=== PATIENT | male | born 1975 | race African-American/Black ===

== ENCOUNTER 2019-04-13 10:43 | Emergency (ER) | payer SELFPAY ==
[2019-04-13] MEDS ORDERED: MORPHINE SULFATE 10 MG/ML INJ IV ONE (10:58)
[2019-04-13] MEDS ORDERED: ONDANSETRON HCL INJ/PF 4 MG/2 ML SDV IV ONE (10:58)
[2019-04-13] MEDS ORDERED: NORMAL SALINE 1000 ML 1,000 ML IV ONE ×2 (10:59→13:03)
--- NOTE | 2019-04-13 11:01 | ER Document Report ---
ED Medical Screen (RME) - General Chief Complaint: Abdominal Pain Stated Complaint: ABDOMINAL PAIN Time Seen by Provider: 04/13/19 10:55 Mode of Arrival: Ambulatory Information source: Patient Notes: Patient is a 44-year-old male with past medical history of pancreatitis presenting with severe upper abdominal pain and back pain. Patient also reports associated chills and nausea. He states he has been taking antinausea medication at home as he has not vomited. Exam: Upper abdominal tenderness to palpation. I have greeted and performed a rapid initial assessment of this patient. A com prehensive ED assessment and evaluation of the patient, analysis of test results and completion of the medical decision making process will be conducted by additional ED providers. Dictation of this chart was performed using voice recognition software; therefore, there may be some unintended grammatical errors. - Related Data Allergies/Adverse Reactions: Penicillins Allergy (Verified 04/13/19 10:46) prils Allergy (Uncoded 04/13/19 10:46) Past Medical History - Social History Chew tobacco use (# tins/day): No Frequency of alcohol use: Occasional Drug Abuse: None Pulmonary Medical History: Reports: Hx Asthma Renal/ Medical History: Denies: Hx Peritoneal Dialysis Physical Exam - Vital signs Vitals: Temp Pulse Resp BP Pulse Ox 98.3 F 81 18 155/97 H 97 04/13/19 10:47 04/13/19 10:47 04/13/19 10:47 04/13/19 10:47 04/13/19 10:47 Course - Vital Signs Vital signs: Temp Pulse Resp BP Pulse Ox 98.3 F 81 18 155/97 H 97 04/13/19 10:47 04/13/19 10:47 04/13/19 10:47 04/13/19 10:47 04/13/19 10:47
[2019-04-13 11:49] LABS: ABSOLUTE BASOPHILS # (AUTO) 0.1 10^3/uL (0.0-0.2); ABSOLUTE EOSINOPHILS # (AUTO) 0.1 10^3/uL (0.0-0.6); ABSOLUTE LYMPHOCYTES (AUTO) 1.1 10^3/uL (0.5-4.7); ABSOLUTE NEUT (AUTO) 5.7 10^3/uL (1.7-8.2); BASOPHILS % (AUTO) 0.8 % (0-2); EOSINOPHILS % (AUTO) 1.8 % (0-6); HEMATOCRIT 42.3 % (37.9-51.0); HEMOGLOBIN 13.9 g/dL (13.5-17.0); MEAN CORPUSCULAR HEMOGLOBIN 24.4 pg (27.0-33.4); MEAN CORPUSCULAR HGB CONC 32.8 g/dL (32.0-36.0); MEAN CORPUSCULAR VOLUME 74 fl (80-97); MONOCYTES % (AUTO) 12.2 % (3-13); PLATELET COUNT 145 10^3/uL (150-450); RED CELL DISTRIBUTION WIDTH 15.2 % (11.5-14.0); SEGMENTED NEUTROPHILS % (AUTO) 71.2 % (42-78); TOTAL CELLS COUNTED % (AUTO) 100 %
[2019-04-13 12:10] LABS: ALANINE AMINOTRANSFERASE 98 U/L (21-72); ALBUMIN 5.1 g/dL (3.5-5.0); ALKALINE PHOSPHATASE 121 U/L (38-126); ANION GAP 18 (5-19); ASPARTATE AMINO TRANSFERASE 101 U/L (17-59); BILIRUBIN,DIRECT 0.6 mg/dL (0.0-0.4); BILIRUBIN,TOTAL 1.3 mg/dL (0.2-1.3); BLOOD UREA NITROGEN 9 mg/dL (7-20); CALCIUM 11.2 mg/dL (8.4-10.2); CARBON DIOXIDE 22 mmol/L (22-30); CHLORIDE 97 mmol/L (98-107); GLUCOSE 78 mg/dL (75-110); LIPASE 597.8 U/L (23-300); POTASSIUM 4.4 mmol/L (3.6-5.0); SODIUM 137.1 mmol/L (137-145); TOTAL PROTEIN 8.5 g/dL (6.3-8.2)
--- NOTE | 2019-04-13 13:02 | ER Document Report ---
ED GI/ - General Chief Complaint: Abdominal Pain Stated Complaint: ABDOMINAL PAIN Time Seen by Provider: 04/13/19 10:55 Mode of Arrival: Ambulatory Notes: 44-year-old -[place] male to the emergency department chief complaint of pancreatitis. Patient states that he gets pancreatitis all the time but denies that he is drinking anymore. Most the time he can handle the pain but has gotten severe. Positive nausea. States that he has not been eating for 3 days. - HPI Patient complains to provider of: Abdominal pain, Vomiting Timing/Duration: Gradual, Constant Quality of pain: Achy, Burning Severity at maximum: Moderate Severity in ED: Moderate Pain Level: 4 Location: Epigastric - Related Data Allergies/Adverse Reactions: Penicillins Allergy (Verified 04/13/19 10:46) prils Allergy (Uncoded 04/13/19 10:46) Past Medical History - General Information source: Patient - Social History Smoking Status: Current Every Day Smoker Chew tobacco use (# tins/day): No Frequency of alcohol use: Occasional Drug Abuse: None Lives with: Family Family History: Reviewed & Not Pertinent Patient has suicidal ideation: No Patient has homicidal ideation: No Pulmonary Medical History: Reports: Hx Asthma Renal/ Medical History: Denies: Hx Peritoneal Dialysis GI Medical History: Reports: Other - Chronic pancreatitis Review of Systems - Review of Systems Constitutional: No symptoms reported. denies: Fever, Malaise, Weakness EENT: No symptoms reported. denies: Ear pain, Throat pain, Difficulty swallowing, Throat swelling Cardiovascular: No symptoms reported. denies: Chest pain, Palpitations, Heart racing Respiratory: denies: Hurts to breathe, Short of breath, Wheezing Gastrointestinal: Abdominal pain, Nausea, Vomiting. denies: Diarrhea Genitourinary: No symptoms reported Male Genitourinary: No symptoms reported Musculoskeletal: No symptoms reported Skin: No symptoms reported Hematologic/Lymphatic: No symptoms reported Neurological/Psychological: No symptoms reported Physical Exam - Vital signs Vitals: Temp Pulse Resp BP Pulse Ox 98.3 F 81 18 155/97 H 97 04/13/19 10:47 04/13/19 10:47 04/13/19 10:47 04/13/19 10:47 04/13/19 10:47 Interpretation: Normal - General General appearance: Appears well, Alert - HEENT Head: Normocephalic, Atraumatic Eyes: Normal Pupils: PERRL - Respiratory Respiratory status: No respiratory distress Chest status: Nontender Breath sounds: Normal Chest palpation: Normal - Cardiovascular Rhythm: Regular Heart sounds: Normal auscultation Murmur: No - Abdominal Inspection: Normal Distension: No distension Bowel sounds: Normal Tenderness: Tender - Tenderness palpation in the epigastric region. Organomegaly: No organomegaly - Back Back: Normal, Nontender - Extremities General upper extremity: Normal inspection, Nontender, Normal color, Normal ROM, Normal temperature General lower extremity: Normal inspection, Nontender, Normal color, Normal ROM, Normal temperature, Normal weight bearing. No: Tomas's sign - Neurological Neuro grossly intact: Yes Cognition: Normal Orientation: AAOx4 Fidel Coma Scale Eye Opening: Spontaneous Fidel Coma Scale Verbal: Oriented Aspen Coma Scale Motor: Obeys Commands Fidel Coma Scale Total: 15 Speech: Normal Motor strength normal: LUE, RUE, LLE, RLE Sensory: Normal - Psychological Associated symptoms: Normal affect, Normal mood - Skin Skin Temperature: Warm Skin Moisture: Dry Skin Color: Normal Course - Re-evaluation Re-evalutation: 04/13/19 17:03 Laboratory 04/13/19 04/13/19 04/13/19 11:35 11:35 11:35 WBC 8.0 RBC 5.70 H Hgb 13.9 Hct 42.3 MCV 74 L MCH 24.4 L MCHC 32.8 RDW 15.2 H Plt Count 145 L Seg Neutrophils % 71.2 Lymphocytes % 14.0 Monocytes % 12.2 Eosinophils % 1.8 Basophils % 0.8 Absolute Neutrophils 5.7 Absolute Lymphocytes 1.1 Absolute Monocytes 1.0 Absolute Eosinophils 0.1 Absolute Basophils 0.1 Sodium 137.1 Potassium 4.4 Chloride 97 L Carbon Dioxide 22 Anion Gap 18 BUN 9 Creatinine 0.73 Est GFR ( Amer) > 60 Est GFR (Non-Af Amer) > 60 Glucose 78 Calcium 11.2 H Total Bilirubin 1.3 Direct Bilirubin 0.6 H Neonat Total Bilirubin Not Reportable Neonat Direct Bilirubin Not Reportable Neonat Indirect Bili Not Reportable AST 101 H ALT 98 H Alkaline Phosphatase 121 Total Protein 8.5 H Albumin 5.1 H Lipase 597.8 H Urine Color Urine Appearance Urine pH Ur Specific [place] Urine Protein Urine Glucose (UA) Urine Ketones Urine Blood Urine Nitrite Urine Bilirubin Urine Urobilinogen Ur Leukocyte Esterase Urine WBC (Auto) Urine RBC (Auto) Squamous Epi Cells Auto Urine Mucus (Auto) Urine Ascorbic Acid Urine Opiates Screen Urine Methadone Screen Ur Barbiturates Screen Ur Phencyclidine Scrn Ur Amphetamines Screen U Benzodiazepines Scrn Urine Cocaine Screen U Marijuana (THC) Screen Serum Alcohol < 10 04/13/19 04/13/19 13:05 13:29 WBC RBC Hgb Hct MCV MCH MCHC RDW Plt Count Seg Neutrophils % Lymphocytes % Monocytes % Eosinophils % Basophils % Absolute Neutrophils Absolute Lymphocytes Absolute Monocytes Absolute Eosinophils Absolute Basophils Sodium Potassium Chloride Carbon Dioxide Anion Gap BUN Creatinine Est GFR ( Amer) Est GFR (Non-Af Amer) Glucose Calcium Total Bilirubin Direct Bilirubin Neonat Total Bilirubin Neonat Direct Bilirubin Neonat Indirect Bili AST ALT Alkaline Phosphatase Total Protein Albumin Lipase Urine Color MARIE Urine Appearance SLIGHTLY-CLOUDY Urine pH 5.0 Ur Specific [place] 1.030 Urine Protein 100 H Urine Glucose (UA) NEGATIVE Urine Ketones 80 H Urine Blood NEGATIVE Urine Nitrite NEGATIVE Urine Bilirubin SMALL H Urine Urobilinogen 2.0 H Ur Leukocyte Esterase NEGATIVE Urine WBC (Auto) 2 Urine RBC (Auto) 0 Squamous Epi Cells Auto <1 Urine Mucus (Auto) MANY Urine Ascorbic Acid NEGATIVE Urine Opiates Screen UNCONFIRMED POSITIVE Urine Methadone Screen NEGATIVE Ur Barbiturates Screen NEGATIVE Ur Phencyclidine Scrn NEGATIVE Ur Amphetamines Screen NEGATIVE U Benzodiazepines Scrn NEGATIVE Urine Cocaine Screen NEGATIVE U Marijuana (THC) Screen NEGATIVE Serum Alcohol Chest X-Ray 04/13/19 13:30 IMPRESSION: NO ACUTE RADIOGRAPHIC FINDING IN THE CHEST. Patient with clinical pancreatitis with small elevation in lipase. Multiple liters of normal saline has been given. Multiple rounds pain medication. Patient tolerating p.o. Comfortable at this time discharge in stable condition. - Vital Signs Vital signs: Temp Pulse Resp BP Pulse Ox 97.5 F 73 18 153/95 H 100 04/13/19 17:06 04/13/19 17:06 04/13/19 17:06 04/13/19 17:06 04/13/19 17:06 - Laboratory Result Diagrams: 04/13/19 11:35 04/13/19 11:35 Laboratory results interpreted by me: 04/13/19 04/13/19 04/13/19 11:35 11:35 13:05 RBC 5.70 H MCV 74 L MCH 24.4 L RDW 15.2 H Plt Count 145 L Chloride 97 L Calcium 11.2 H Direct Bilirubin 0.6 H AST 101 H ALT 98 H Total Protein 8.5 H Albumin 5.1 H Lipase 597.8 H Urine Protein 100 H Urine Ketones 80 H Urine Bilirubin SMALL H Urine Urobilinogen 2.0 H Discharge - Discharge Clinical Impression: Pancreatitis, chronic Qualifiers: Pancreatitis type: unspecified pancreatitis type Qualified Code(s): K86.1 - Other chronic pancreatitis Condition: Good Disposition: HOME, SELF-CARE Instructions: Pancreatitis ([facility]) Additional Instructions: Continue with clear liquids and eventually a bland diet as tolerated with broth and crackers and things like chicken noodle soup, etc.. Take Zofran for the nausea. Avoid all alcohol. Avoid fatty foods. Follow-up with your regular doctor. Return for any worsening symptoms or concerns especially in the next 24 hours if getting worse. Prescriptions: Hydrocodone/Acetaminophen [[place] 5-325 mg Tablet] 1 tab PO TID PRN 3 Days #9 tablet PRN Reason: Ondansetron [Zofran Odt 4 mg Tablet] 1 - 2 tab PO Q4H PRN #15 tab.rapdis PRN Reason: For Nausea/Vomiting Ranitidine HCl [Zantac] 150 mg PO BID 7 Days #14 tablet Referrals: RADHA PETTIT MD [ACTIVE STAFF] - Follow up as needed JERRI COLBY MD [ACTIVE STAFF] - Follow up as needed [facility] [Provider Group] - Follow up as needed
[2019-04-13] MEDS ORDERED: HYDROMORPHONE HCL INJ/PF 2 MG/ML AMPULE IV ONE (13:29)
[2019-04-13] MEDS ORDERED: IPRATROPIUM/ALBUTEROL 0.5-2.5 MG/3 ML AMPUL NEB ONE (13:30)
[2019-04-13] MEDS ORDERED: FAMOTIDINE INJ/PF 20 MG/2 ML SDV IV ONE (13:30)
[2019-04-13 13:32] LABS: APPEARANCE,URINE SLIGHTLY-CLOUDY; BILIRUBIN,URINE SMALL (NEGATIVE); COLOR,URINE AMBER; GLUCOSE, URINE NEGATIVE (NEGATIVE); KETONES,URINE 80 mg/dL (NEGATIVE); LEUKOCYTE ESTERASE,URINE NEGATIVE (NEGATIVE); NITRITE,URINE NEGATIVE (NEGATIVE); PROTEIN,URINE 100 mg/dL (NEGATIVE)
[2019-04-13 13:55] LABS: URINE AMPHETAMINES SCREEN NEGATIVE; URINE COCAINE SCREEN NEGATIVE; URINE MARIJUANA (THC) SCREEN NEGATIVE; URINE METHADONE SCREEN NEGATIVE; URINE PHENCYCLIDINE SCREEN NEGATIVE
[2019-04-13] MEDS ORDERED: DEXTROSE 5%-1/2 NORMAL SALINE 1,000 ML IV ONE (13:55)
[2019-04-13 13:56] LABS: URINE BARBITURATES SCREEN NEGATIVE; URINE BENZODIAZEPINES SCREEN NEGATIVE
--- NOTE | 2019-04-13 14:08 | RADIOLOGY REPORT (SQ) ---
EXAM DESCRIPTION: CHEST SINGLE VIEW COMPLETED DATE/TIME: 04/13/2019 1:57 pm REASON FOR STUDY: sob COMPARISON: None. EXAM PARAMETERS: NUMBER OF VIEWS: One view. TECHNIQUE: Single frontal radiographic view of the chest acquired. RADIATION DOSE: NA LIMITATIONS: None. FINDINGS: LUNGS AND PLEURA: No opacities, masses or pneumothorax. No pleural effusion. MEDIASTINUM AND HILAR STRUCTURES: No masses. Contour normal. HEART AND VASCULAR STRUCTURES: Heart normal in size. Normal vasculature. BONES: No acute findings. Degenerative changes in the spine. HARDWARE: None in the chest. OTHER: No other significant finding. IMPRESSION: NO ACUTE RADIOGRAPHIC FINDING IN THE CHEST. TECHNICAL DOCUMENTATION: JOB ID: [id number] [employer]- All Rights Reserved Reading location - IP/workstation name: [email or web address]
[2019-04-13] MEDS ORDERED: HYDROCODONE/ACETAMINOPHEN 5-325 MG TABLET PO ONE (16:56)
[2019-04-13] MEDS ORDERED: ONDANSETRON 4 MG TAB.RAPDIS PO ONE (16:57)
[2019-04-13 17:46] VITALS: BP 157/87
== END 2019-04-13 18:01 | disposition home or self-care (01) ==
LOC: ER 10:43
DX: K86.1 Other chronic pancreatitis (principal); R10.9 Unspecified abdominal pain; R11.2 Nausea with vomiting, unspecified; F17.200 Nicotine dependence, unspecified, uncomplicated; Z88.0 Allergy status to penicillin
CPT/HCPCS: 94640; 99284; 96361; 96374; 96375; 36415; 80307 ×2; 83690; 85025; 80053; 81001; 71045; S0119; J2270; J1170; J2405; J7030; S0028; J7620

== ENCOUNTER 2019-04-13 23:49 | Inpatient (IN) | payer SELFPAY ==
[2019-04-14] MEDS ORDERED: NORMAL SALINE 1000 ML 1,000 ML IV ONE (01:15)
--- NOTE | 2019-04-14 01:17 | ER Document Report ---
ED Medical Screen (RME) - General Chief Complaint: Abdominal Pain Stated Complaint: SEVERE ABDOMINAL PAIN Time Seen by Provider: 04/14/19 01:14 Mode of Arrival: Ambulatory Information source: Patient Notes: 44-year-old male presents to ED for increased and abdominal pain. He states he was seen in the emergency room earlier today and discharged around 4 or 5 PM. He states the pain in his abdomen is much worse now than earlier. States he has a history of pancreatitis and was diagnosed with pancreatitis earlier today. He also has a history of asthma. He states he smokes 2 black in miles a day and drinks alcohol about weekly. He states he has not had any alcohol in a week. He states the pain is much worse now than before. He states he knows he needs to deny fever please he only wants one stick. I have greeted and performed a rapid initial assessment of this patient. A comprehensive ED assessment and evaluation of the patient, analysis of test results and completion of medical decision making process will be conducted by an additional ED providers. Dictation of this chart was performed using voice recognition software; therefore, there may be some unintended grammatical errors. TRAVEL OUTSIDE OF THE [place] IN LAST 30 DAYS: No - Related Data Allergies/Adverse Reactions: Penicillins Allergy (Verified 04/13/19 10:46) prils Allergy (Uncoded 04/13/19 10:46) Past Medical History Pulmonary Medical History: Reports: Hx Asthma Renal/ Medical History: Denies: Hx Peritoneal Dialysis Physical Exam - Vital signs Vitals: Temp Pulse Resp BP Pulse Ox 97.8 F 64 18 167/90 H 98 04/14/19 00:07 04/14/19 00:07 04/14/19 00:07 04/14/19 00:07 04/14/19 00:07 Course - Vital Signs Vital signs: Temp Pulse Resp BP Pulse Ox 97.8 F 64 18 167/90 H 98 04/14/19 00:07 04/14/19 00:07 04/14/19 00:07 04/14/19 00:07 04/14/19 00:07
[2019-04-14 02:11] LABS: APPEARANCE,URINE SLIGHTLY-CLOUDY; BILIRUBIN,URINE NEGATIVE (NEGATIVE); COLOR,URINE AMBER; GLUCOSE, URINE NEGATIVE (NEGATIVE); KETONES,URINE 80 mg/dL (NEGATIVE); LEUKOCYTE ESTERASE,URINE NEGATIVE (NEGATIVE); NITRITE,URINE NEGATIVE (NEGATIVE); PROTEIN,URINE 30 mg/dL (NEGATIVE); URINE SPECIFIC GRAVITY 1.025
[2019-04-14 02:36] LABS: URINE AMPHETAMINES SCREEN NEGATIVE; URINE BARBITURATES SCREEN NEGATIVE; URINE BENZODIAZEPINES SCREEN NEGATIVE; URINE COCAINE SCREEN NEGATIVE; URINE MARIJUANA (THC) SCREEN UNCONFIRMED POSITIVE; URINE METHADONE SCREEN NEGATIVE; URINE PHENCYCLIDINE SCREEN NEGATIVE
[2019-04-14 02:59] LABS: ABSOLUTE LYMPHOCYTES (AUTO) 0.6 10^3/uL (0.5-4.7); BASOPHILS % (AUTO) 0.3 % (0-2); EOSINOPHILS % (AUTO) 0.4 % (0-6); HEMATOCRIT 41.6 % (37.9-51.0); HEMOGLOBIN 13.8 g/dL (13.5-17.0); LYMPHOCYTES % (AUTO) 6.4 % (13-45); MEAN CORPUSCULAR HEMOGLOBIN 24.7 pg (27.0-33.4); MEAN CORPUSCULAR HGB CONC 33.1 g/dL (32.0-36.0); MEAN CORPUSCULAR VOLUME 75 fl (80-97); MONOCYTES % (AUTO) 11.7 % (3-13); PLATELET COUNT 134 10^3/uL (150-450); RED BLOOD COUNT 5.58 10^6/uL (4.35-5.55); RED CELL DISTRIBUTION WIDTH 15.4 % (11.5-14.0); SEGMENTED NEUTROPHILS % (AUTO) 81.2 % (42-78); TOTAL CELLS COUNTED % (AUTO) 100 %; WHITE BLOOD COUNT 8.6 10^3/uL (4.0-10.5)
[2019-04-14 03:13] LABS: ALANINE AMINOTRANSFERASE 80 U/L (21-72); ALBUMIN 4.4 g/dL (3.5-5.0); ALCOHOL < 10 mg/dL (NONE DETECTED); ALKALINE PHOSPHATASE 95 U/L (38-126); ANION GAP 15 (5-19); ASPARTATE AMINO TRANSFERASE 76 U/L (17-59); BILIRUBIN,DIRECT 0.5 mg/dL (0.0-0.4); BLOOD UREA NITROGEN 6 mg/dL (7-20); CALCIUM 9.8 mg/dL (8.4-10.2); CARBON DIOXIDE 22 mmol/L (22-30); CHLORIDE 98 mmol/L (98-107); GLUCOSE 99 mg/dL (75-110); POTASSIUM 4.5 mmol/L (3.6-5.0); SODIUM 135.2 mmol/L (137-145); TOTAL PROTEIN 7.5 g/dL (6.3-8.2)
[2019-04-14] MEDS ORDERED: RINGERS SOLUTION,LACTATED 1,000 ML IV ONE (03:14)
[2019-04-14] MEDS ORDERED: ONDANSETRON HCL INJ/PF 4 MG/2 ML SDV IV ONE (03:14)
[2019-04-14] MEDS ORDERED: HYDROMORPHONE HCL INJ/PF 2 MG/ML AMPULE IV ONE (03:14)
--- NOTE | 2019-04-14 03:17 | ER Document Report ---
ED GI/ - General Chief Complaint: Abdominal Pain Stated Complaint: SEVERE ABDOMINAL PAIN Time Seen by Provider: 04/14/19 01:14 Mode of Arrival: Ambulatory Notes: Patient is a 44-year-old male that comes to the emergency department for chief complaint of upper abdominal pain and vomiting. He states he was seen here earlier today, discharge, when he went home pain and vomiting became much worse so he came back. He has vomited around 15 times today he reports. He states he has not eaten much for the past 3 days. He denies fever/chills. He does report of history of pancreatitis frequently in the past. He states initially he was told was from alcohol, he states he stopped drinking (he clarified he only drin ks around once a week now), he states now he just seems to "randomly get it". He smokes marijuana, denies recreational drugs otherwise. He has not had any abdominal surgeries, he denies any daily medications, past medical history of asthma. He states normally he goes to [place] but he might be relocating here now. TRAVEL OUTSIDE OF THE [place] IN LAST 30 DAYS: No - Related Data Allergies/Adverse Reactions: Penicillins Allergy (Verified 04/13/19 10:46) prils Allergy (Uncoded 04/13/19 10:46) Past Medical History - General Information source: Patient - Social History Smoking Status: Current Some Day Smoker Frequency of alcohol use: Occasional Drug Abuse: Marijuana Lives with: Alone Family History: Reviewed & Not Pertinent Pulmonary Medical History: Reports: Hx Asthma Renal/ Medical History: Denies: Hx Peritoneal Dialysis Review of Systems - Review of Systems Constitutional: No symptoms reported EENT: No symptoms reported Cardiovascular: No symptoms reported Respiratory: No symptoms reported Gastrointestinal: See HPI Genitourinary: No symptoms reported Male Genitourinary: No symptoms reported Musculoskeletal: No symptoms reported Skin: No symptoms reported Hematologic/Lymphatic: No symptoms reported Neurological/Psychological: No symptoms reported Physical Exam - Vital signs Vitals: Temp Pulse Resp BP Pulse Ox 97.8 F 64 18 167/90 H 98 04/14/19 00:07 04/14/19 00:07 04/14/19 00:07 04/14/19 00:07 04/14/19 00:07 - Notes Notes: GENERAL: Restless, appears somewhat uncomfortable but not in severe distress HEAD: Normocephalic, atraumatic. EYES: Pupils equal, round, and reactive to light. Extraocular movements intact. ENT: Oral mucosa moist, tongue midline. Oropharynx unremarkable. Airway patent. NECK: Full range of motion. Supple. Trachea midline. LUNGS: Clear to auscultation bilaterally, no wheezes, rales, or rhonchi. No respiratory distress. HEART: Regular rate and rhythm. No murmur ABDOMEN: Tender in the abdomen generally, worst in the right upper quadrant and epigastric area, there is also tenderness in the left upper quadrant. No guarding or rigidity noted however. Bowel sounds present throughout. GENITOURINARY: Deferred EXTREMITIES: Moves all 4 extremities spontaneously. No edema, normal radial and dorsalis pedis pulses bilaterally. No cyanosis. BACK: no cervical, thoracic, lumbar midline tenderness. No saddle anesthesia, normal distal neurovascular exam. Moves all extremities in full range of motion. NEUROLOGICAL: Alert and oriented x3. Normal speech. Cranial nerves II through XII grossly intact. PSYCH: Slightly anxious SKIN: Warm, dry, normal turgor. No rashes or lesions noted. Course - Re-evaluation Re-evalutation: On my physical examination patient actually has more right upper quadrant pain than anywhere else. He has generalized abdominal tenderness. He is uncomfortable in appearance but his vital signs are unremarkable and he is not toxic in appearance. CBC unremarkable. Chemistry shows borderline elevated LFTs. Lipase is significantly increased from 500 to 7483. Patient attempted to tolerate p.o. but vomited a cracker he reports. He does feel improved after IV fluids and IV medications but he still has some pain. Right upper quadrant ultrasound unremarkable other than fatty liver. Because of patient not being able to tolerate p.o., significantly worsening symptoms, significantly worsening lipase, I did recommend admission, patient states he wanted to go home but he does not feel like he would do well. Will discuss with hospitalist. Discussed with Dr. West, patient admitted to the medical floor full admission. - Vital Signs Vital signs: Temp Pulse Resp BP Pulse Ox 97.4 F 67 16 146/98 H 97 04/14/19 06:07 04/14/19 06:07 04/14/19 06:07 04/14/19 07:29 04/14/19 06:07 - Laboratory Result Diagrams: 04/14/19 02:27 04/14/19 02:27 Laboratory results interpreted by me: 04/14/19 04/14/19 04/14/19 01:58 02:27 02:27 RBC 5.58 H MCV 75 L MCH 24.7 L RDW 15.4 H Plt Count 134 L Seg Neutrophils % 81.2 H Lymphocytes % 6.4 L Sodium 135.2 L BUN 6 L Direct Bilirubin 0.5 H AST 76 H ALT 80 H Lipase 7483.3 H Urine Protein 30 H Urine Ketones 80 H Urine Urobilinogen 2.0 H Discharge - Discharge Clinical Impression: Dehydration Acute pancreatitis Qualifiers: Pancreatitis type: unspecified pancreatitis type Acute pancreatitis complication: unspecified Qualified Code(s): K85.90 - Acute pancreatitis without necrosis or infection, unspecified Vomiting Qualifiers: Vomiting type: unspecified Vomiting Intractability: non-intractable Nausea presence: with nausea Qualified Code(s): R11.2 - Nausea with vomiting, unspecified Condition: Stable Disposition: ADMITTED INPATIENT Admitting Provider: Brett (Hospitalist) Unit Admitted: Medical Floor
[2019-04-14 03:33] LABS: LIPASE 7483.3 U/L (23-300)
--- NOTE | 2019-04-14 04:18 | RADIOLOGY REPORT (SQ) ---
EXAM DESCRIPTION: US ABDOMEN LIMITED COMPLETED DATE/TME: 04/14/2019 03:14 CLINICAL HISTORY: 44 years, Male, RUQ pain, vomiting COMPARISON: None. TECHNIQUE: Grayscale and color images of the abdomen LIMITATIONS: None. FINDINGS: The visualized portions of the abdominal aorta and IVC appear unremarkable. The pancreas is not well-seen. The liver demonstrates increased echotexture. The liver measures 16.5 cm in size. The main portal vein demonstrates normal hepatopedal flow. The gallbladder appears normal. No evidence of cholelithiasis or wall thickening. No sonographic Greene sign was elicited. The common bile duct measures up to 2 mm in diameter. The right kidney measures 12.7 x 5.2 x 6.9 cm. No hydronephrosis. IMPRESSION: Fatty liver. No evidence of cholelithiasis or acute cholecystitis. copyright 2010 [employer]- All Rights Reserved
[2019-04-14] MEDS ORDERED: FAMOTIDINE INJ/PF 20 MG/2 ML SDV IV ONE (04:43)
[2019-04-14] MEDS ORDERED: DEXTROSE 40% GEL 15 GM TUBE PO PRN ×2 (05:55)
[2019-04-14] MEDS ORDERED: ACETAMINOPHEN 325 MG TABLET PO PRN (05:55)
[2019-04-14] MEDS ORDERED: IPRATROPIUM/ALBUTEROL 0.5-2.5 MG/3 ML AMPUL NEB PRN (05:55)
[2019-04-14] MEDS ORDERED: DEXTROSE 50%-WATER 25 GM/50 ML DISP.SYRIN IV PRN ×2 (05:55)
[2019-04-14] MEDS ORDERED: GLUCAGON,HUMAN RECOMB 1 MG INJ SUBCUT PRN (05:55)
[2019-04-14] MEDS: KETOROLAC TROMETHAMINE INJ/PF 30 MG/1 ML SDV IV PRN ×2 (06:34→12:34)
[2019-04-14] MEDS: PROMETHAZINE HCL INJ 25 MG/1 ML VIAL IV PRN ×2 (06:34→19:41)
--- NOTE | 2019-04-14 06:42 | PDOC H&P ---
History of Present Illness Admission Date/PCP: 04/14/19 05:19 Patient complains of: Abdominal pain and nausea History of Present Illness: SILVIA TARIQ is a 44 year old male with a past medical history of tobacco, cannabis, alcohol dependence and alcohol-related pancreatitis. He presents with 3 days of poor p.o. intake secondary to epigastric pain patient admits to recent alcohol use 1 week ago. He was seen in the emergency room earlier in the day for the same and was tolerating clear liquids and subsequently discharged home with follow-up PRN. Patient had intractable pain with nausea prompting reevaluation. Reevaluation of lipase from 600-7000 over the last 12 hours. Abdominal ultrasound and bilirubin is unremarkable he receives symptomatic management and referred to the hospitalist for admission. Past Medical History Pulmonary Medical History: Reports: Asthma GI Medical History: Reports: Other - Pancreatitis Psychiatric Medical History: Reports: Alcohol Dependency, Substance Abuse, Tobacco Dependency Social History Information Source: Patient, Emergency Med Personnel, [facility] Records Smoking Status: Current Every Day Smoker Frequency of Alcohol Use: Social Drugs: Marijuana - Advance Directive Resuscitation Status: Full Code Family History Family History: Hypertension Parental Family History Reviewed: Yes Children Family History Reviewed: Yes Sibling(s) Family History Reviewed.: Yes Medication/Allergy Home Medications: Hydrocodone/Acetaminophen [Bath 5-325 mg Tablet] 1 tab PO TID PRN 3 Days #9 tablet 04/13/19 Ondansetron [Zofran Odt 4 mg Tablet] 1 - 2 tab PO Q4H PRN #15 tab.rapdis 04/13/19 Ranitidine HCl [Zantac] 150 mg PO BID 7 Days #14 tablet 04/13/19 Allergies/Adverse Reactions: Penicillins Allergy (Verified 04/13/19 10:46) prils Allergy (Uncoded 04/13/19 10:46) Review of Systems Constitutional: PRESENT: anorexia, fatigue. ABSENT: chills, fever(s), headache(s), weight gain, weight loss Eyes: ABSENT: visual disturbances Ears: ABSENT: hearing changes Cardiovascular: ABSENT: chest pain, dyspnea on exertion, edema, orthropnea, palpitations Respiratory: ABSENT: cough, hemoptysis Gastrointestinal: PRESENT: as per HPI, abdominal pain, bloating, nausea, vomiting. ABSENT: constipation, diarrhea, hematemesis, hematochezia Genitourinary: ABSENT: dysuria, hematuria Musculoskeletal: ABSENT: joint swelling Integumentary: ABSENT: rash, wounds Neurological: ABSENT: abnormal gait, abnormal speech, confusion, dizziness, fo carissa weakness, syncope Psychiatric: ABSENT: anxiety, depression, homidical ideation, suicidal ideation Endocrine: ABSENT: cold intolerance, heat intolerance, polydipsia, polyuria Hematologic/Lymphatic: ABSENT: easy bleeding, easy bruising Physical Exam Vital Signs: Temp Pulse Resp BP Pulse Ox 97.8 F 64 18 160/83 H 98 04/14/19 00:07 04/14/19 00:07 04/14/19 05:32 04/14/19 05:47 04/14/19 05:32 Intake & Output 04/12/19 04/13/19 04/14/19 11:59 11:59 11:59 Intake Total 1999 Balance 1999 Weight 97 kg General appearance: PRESENT: cooperative, mild distress. ABSENT: disheveled Head exam: PRESENT: atraumatic, normocephalic Eye exam: PRESENT: conjunctiva pink, EOMI, PERRLA. ABSENT: scleral icterus Ear exam: PRESENT: normal external ear exam Mouth exam: PRESENT: dry mucosa, neck supple. ABSENT: laceration Neck exam: ABSENT: carotid bruit, JVD, lymphadenopathy, thyromegaly Respiratory exam: PRESENT: clear to auscultation genet, crackles. ABSENT: rales, rhonchi, wheezes Cardiovascular exam: PRESENT: RRR. ABSENT: diastolic murmur, rubs, systolic murmur Pulses: PRESENT: normal dorsalis pedis pul Vascular exam: PRESENT: normal capillary refill GI/Abdominal exam: PRESENT: hyperactive bowel sounds, soft, tenderness. ABSENT: guarding Rectal exam: PRESENT: deferred Extremities exam: PRESENT: full ROM. ABSENT: calf tenderness, clubbing, pedal edema Neurological exam: PRESENT: alert, awake, oriented to person, oriented to place, oriented to time, oriented to situation, CN II-XII grossly intact. ABSENT: motor sensory deficit Psychiatric exam: PRESENT: appropriate affect, normal mood. ABSENT: homicidal ideation, suicidal ideation Skin exam: PRESENT: dry, intact, warm. ABSENT: cyanosis, rash Results Laboratory Results: 04/14/19 02:27 04/14/19 02:27 04/14/19 04/14/19 04/14/19 01:58 02:27 02:27 WBC 8.6 RBC 5.58 H Hgb 13.8 Hct 41.6 MCV 75 L MCH 24.7 L MCHC 33.1 RDW 15.4 H Plt Count 134 L Seg Neutrophils % 81.2 H Lymphocytes % 6.4 L Monocytes % 11.7 Eosinophils % 0.4 Basophils % 0.3 Absolute Neutrophils 7.0 Absolute Lymphocytes 0.6 Absolute Monocytes 1.0 Absolute Eosinophils 0.0 Absolute Basophils 0.0 Sodium 135.2 L Potassium 4.5 Chloride 98 Carbon Dioxide 22 Anion Gap 15 BUN 6 L Creatinine 0.57 Est GFR ( Amer) > 60 Est GFR (Non-Af Amer) > 60 Glucose 99 Calcium 9.8 Total Bilirubin 1.0 AST 76 H ALT 80 H Alkaline Phosphatase 95 Total Protein 7.5 Albumin 4.4 Lipase 7483.3 H Urine Color MARIE Urine Appearance SLIGHTLY-CLOUDY Urine pH 5.0 Ur Specific Comfort 1.025 Urine Protein 30 H Urine Glucose (UA) NEGATIVE Urine Ketones 80 H Urine Blood NEGATIVE Urine Nitrite NEGATIVE Ur Leukocyte Esterase NEGATIVE Urine WBC (Auto) 2 Urine RBC (Auto) 1 Impressions: Abdomen Ultrasound 04/14/19 03:14 IMPRESSION: Fatty liver. No evidence of cholelithiasis or acute cholecystitis. copyright 2010 [employer]- All Rights Reserved Assessment and Plan - Diagnosis (1) Acute pancreatitis Qualifiers: Pancreatitis type: unspecified pancreatitis type Acute pancreatitis complication: unspecified Qualified Code(s): K85.90 - Acute pancreatitis without necrosis or infection, unspecified Is this a current diagnosis for this admission?: Yes Plan: History of alcoholic pancreatitis with admission of current alcohol indiscretion. Bowel rest, IV fluid challenge, symptomatic management, follow-up CT and Chem-12 (2) Dehydration Is this a current diagnosis for this admission?: Yes Plan: Secondary to #1, IV fluid challenge (3) Vomiting Qualifiers: Vomiting type: unspecified Vomiting Intractability: non-intractable Nausea presence: with nausea Qualified Code(s): R11.2 - Nausea with vomiting, unspecified Is this a current diagnosis for this admission?: Yes Plan: Secondary to #1, symptomatic management (4) Tobacco abuse Is this a current diagnosis for this admission?: Yes Plan: Tobacco Dependence patient received tobacco cessation counseling and offered nicotine replacement options - Time Time Spent with patient: 35 or more minutes - Inpatient Certification Medical Necessity: Need Close Monitoring Due to Risk of Patient Decompensation
[2019-04-14] MEDS: HEPARIN SOD (PORCINE) 5,000 UNIT/ML 1 ML SYRINGE SUBCUT SCH ×3 (07:03→21:36)
[2019-04-14] MEDS: IPRATROPIUM/ALBUTEROL 0.5-2.5 MG/3 ML AMPUL NEB SCH ×2 (08:17→21:20)
--- NOTE | 2019-04-14 09:58 | RADIOLOGY REPORT (SQ) ---
EXAM DESCRIPTION: CT ABD/PELVIS WITH IV ORAL COMPLETED DATE/TIME: 04/14/2019 9:40 am REASON FOR STUDY: acute pancreatitis COMPARISON: None. TECHNIQUE: CT scan of the abdomen and pelvis performed with intravenous and oral contrast using radha carissa scanning technique with dynamic intravenous contrast injection. Images reviewed with lung, soft t issue, and bone windows. Reconstructed coronal and sagittal MPR images reviewed. Delayed images for e valuation of the urinary system also acquired. All images stored on PACS. All CT scanners at this facility use dose modulation, iterative reconstruction, and/or weight based d osing when appropriate to reduce radiation dose to as low as reasonably achievable (ALARA). [facility]: Dose Right [facility]: CareDose [facility]: Dose Right [facility]: Teradose 4D [facility]: Wizdee CONTRAST TYPE AND DOSE: contrast/concentration: Isovue 350.00 mg/ml; Total Contrast Delivered: 99.0 ml; Total Saline Delivered: 69.0 ml RENAL FUNCTION: BUN 6 creatinine 0.57. RADIATION DOSE: CT Rad equipment meets quality standard of care and radiation dose reduction techniq ues were employed. CTDIvol: 9.8 - 11.5 mGy. DLP: 1157 mGy-cm.. LIMITATIONS: None. FINDINGS: LOWER CHEST: No significant findings. No nodules or infiltrates. LIVER: Normal size. No masses. No dilated ducts. SPLEEN: Normal size. No focal lesions. PANCREAS: No masses. No significant calcifications. Generalized diffuse thickening and inflammation. Homogeneous enhancement. Fluid in the peripancreatic soft tissues extending into the pericolic gut ters. Pancreatic duct not dilated. GALLBLADDER: No identified stones by CT criteria. No inflammatory changes to suggest cholecystitis. ADRENAL GLANDS: No significant masses or asymmetry. RIGHT KIDNEY AND URETER: No solid masses. No significant calcification. No hydronephrosis or hydroure ter. LEFT KIDNEY AND URETER: No solid masses. No significant calcification. No hydronephrosis or hydrouret er. AORTA AND VESSELS: No aneurysm. No dissection. Renal arteries, SMA, celiac without stenosis. RETROPERITONEUM: No retroperitoneal adenopathy, hemorrhage or masses. BOWEL AND PERITONEAL CAVITY: No obstruction. No visualized masses. Fluid in the pericolic gutters. No inflammatory changes or thickening of bowel wall. APPENDIX: Normal. PELVIS: No significant masses. Normal bladder. Free fluid present. ABDOMINAL WALL: No masses. No hernias. BONES: No significant or acute findings. OTHER: No other significant finding. IMPRESSION: 1. DIFFUSE THICKENING AND INFLAMMATION OF THE PANCREAS CONSISTENT WITH ACUTE PANCREATITIS. THERE IS ASSOCIATED FLUID IN THE PERIPANCREATIC TISSUES EXTENDING INTO THE PERICOLIC GUTTERS AND THE DEPENDENT PORTION OF THE PELVIS. HOMOGENEOUS ENHANCEMENT OF THE PANCREAS WITH NO EVIDENCE OF SIGNIFICANT COMP LICATION AT THIS TIME. 2. NO OTHER SIGNIFICANT OR ACUTE FINDINGS IN THE ABDOMEN OR PELVIS. TECHNICAL DOCUMENTATION: JOB ID: [id number] Quality ID # [id number]: Final reports with documentation of one or more dose reduction techniques (e.g., Au tomated exposure control, adjustment of the mA and/or kV according to patient size, use of iterative reconstruction technique) 2010 [email or web address]- All Rights Reserved Reading location - IP/workstation name: [email or web address]
[2019-04-14] MEDS: NORMAL SALINE 1000 ML 1,000 ML IV PRN ×5 (10:49→21:55)
[2019-04-14] MEDS: HYDROMORPHONE HCL INJ/PF 2 MG/ML AMPULE IV PRN ×5 (13:06→21:54)
[2019-04-14] MEDS ORDERED: MAGNESIUM SULFATE/D5W 1 GM/100 ML RTUPB IV ONE (13:15)
--- NOTE | 2019-04-14 13:21 | Progress Note ---
Provider Note Provider Note: SILVIA TARIQ is a 44 year old male with a past medical history of tobacco, cannabis, alcohol dependence and alcohol-related pancreatitis. He presents with 3 days of poor p.o. intake secondary to epigastric pain patient admits to recent alcohol use 1 week ago. He was seen in the emergency room earlier in the day f or the same and was tolerating clear liquids and subsequently discharged home with follow-up PRN. Patient had intractable pain with nausea prompting reevaluation. Reevaluation of lipase from 600-7000 over the last 12 hours. Abdominal ultrasound and bilirubin is unremarkable he receives symptomatic management and referred to the hospitalist for admission. 04/14/2019. Patient still complaining of persistent diffuse abdominal pain 10/10, nonradiating, worse with eating, associated with nausea denies any vomiting, complaining of polyuria, denies any chest pain, shortness of breath, diarrhea or any constipation. Pain is not controlled with tramadol and wants something stronger. Assessment: -Acute on chronic pancreatitis -Hypertension Plan: We will continue bowel rest, antiemetics, IV fluid resuscitation guided by volume status, will switch to Dilaudid 1 mg every 2 as needed. Monitor vitals. -Will obtain hemoglobin A1c and lipid panel. Denies any history of hypertension. SBP 670012. Started on amlodipine 5 mg p.o. daily and hydralazine IV as needed.
[2019-04-14] MEDS: HYDRALAZINE HCL INJ/PF 20 MG/1 ML SDV IV PRN (19:31)
[2019-04-15] MEDS: HYDROMORPHONE HCL INJ/PF 2 MG/ML AMPULE IV PRN ×4 (00:29→15:18)
[2019-04-15] MEDS: HYDRALAZINE HCL INJ/PF 20 MG/1 ML SDV IV PRN (00:29)
[2019-04-15] MEDS: PROMETHAZINE HCL INJ 25 MG/1 ML VIAL IV PRN ×2 (00:29→05:21)
[2019-04-15] MEDS: HEPARIN SOD (PORCINE) 5,000 UNIT/ML 1 ML SYRINGE SUBCUT SCH ×2 (05:11→14:33)
[2019-04-15] MEDS: NORMAL SALINE 1000 ML 1,000 ML IV PRN (05:22)
[2019-04-15 06:13] LABS: ABSOLUTE EOSINOPHILS # (AUTO) 0.1 10^3/uL (0.0-0.6); ABSOLUTE LYMPHOCYTES (AUTO) 0.6 10^3/uL (0.5-4.7); ABSOLUTE MONOCYTES (AUTO) 1.1 10^3/uL (0.1-1.4); ABSOLUTE NEUT (AUTO) 6.3 10^3/uL (1.7-8.2); BASOPHILS % (AUTO) 0.2 % (0-2); EOSINOPHILS % (AUTO) 1.4 % (0-6); HEMATOCRIT 38.1 % (37.9-51.0); HEMOGLOBIN 12.5 g/dL (13.5-17.0); LYMPHOCYTES % (AUTO) 6.9 % (13-45); MEAN CORPUSCULAR HEMOGLOBIN 24.2 pg (27.0-33.4); MEAN CORPUSCULAR HGB CONC 32.8 g/dL (32.0-36.0); MEAN CORPUSCULAR VOLUME 74 fl (80-97); MONOCYTES % (AUTO) 13.6 % (3-13); PLATELET COUNT 107 10^3/uL (150-450); RED BLOOD COUNT 5.16 10^6/uL (4.35-5.55); RED CELL DISTRIBUTION WIDTH 15.2 % (11.5-14.0); SEGMENTED NEUTROPHILS % (AUTO) 77.9 % (42-78); TOTAL CELLS COUNTED % (AUTO) 100 %
[2019-04-15 06:33] LABS: ALANINE AMINOTRANSFERASE 48 U/L (21-72); ALBUMIN 3.4 g/dL (3.5-5.0); ALKALINE PHOSPHATASE 72 U/L (38-126); ANION GAP 14 (5-19); ASPARTATE AMINO TRANSFERASE 43 U/L (17-59); BILIRUBIN,DIRECT 0.5 mg/dL (0.0-0.4); BILIRUBIN,TOTAL 1.2 mg/dL (0.2-1.3); BLOOD UREA NITROGEN 3 mg/dL (7-20); CALCIUM 9.2 mg/dL (8.4-10.2); CARBON DIOXIDE 22 mmol/L (22-30); CHLORIDE 97 mmol/L (98-107); POTASSIUM 4.3 mmol/L (3.6-5.0); SODIUM 132.7 mmol/L (137-145); TOTAL PROTEIN 6.2 g/dL (6.3-8.2)
[2019-04-15 06:57] LABS: GLUCOSE 68 mg/dL (75-110)
[2019-04-15] MEDS: IPRATROPIUM/ALBUTEROL 0.5-2.5 MG/3 ML AMPUL NEB SCH (08:28)
[2019-04-15] MEDS ORDERED: NICOTINE 21 MG/24 HR PATCH.TD24 TD SCH (10:00)
[2019-04-15] MEDS ORDERED: NICOTINE 21 MG/24 HR PATCH.TD24 ONE (10:00)
[2019-04-15] MEDS ORDERED: AMLODIPINE BESYLATE 5 MG TABLET PO SCH (10:00)
[2019-04-15] MEDS: DEXTROSE 5%-NORMAL SALINE 1,000 ML IV PRN ×2 (10:02→15:13)
--- NOTE | 2019-04-15 13:40 | PDOC PROGRESS REPORT ---
Subjective Progress Note for:: 04/15/19 Subjective:: SILVIA TARIQ is a 44 year old male with a past medical history of tobacco, cannabis, alcohol dependence and alcohol-related pancreatitis. He presents with 3 days of poor p.o. intake secondary to epigastric pain patient admits to recent alcohol use 1 week ago. He was seen in the emergency room earlier in the day for the same and was tolerating clear liquids and subsequently discharged home with follow-up PRN. Patient had intractable pain with nausea prompting r eevaluation. Reevaluation of lipase from 600-7000 over the last 12 hours. Abdominal ultrasound and bilirubin is unremarkable he receives symptomatic management and referred to the hospitalist for admission. 04/15/2019. No acute events overnight. Abdominal pain is improving compared to yesterday after being started on hydromorphone. Patient denying any nausea or vomiting, still p.o. intolerant. Is inflated however has not had any bowel movement. Denies any fever, chills, nausea, vomiting, diarrhea, or any urinary symptoms. Reason For Visit: ACUTE ON CHRONIC PANCREATITIS Physical Exam Vital Signs: Temp Pulse Resp BP Pulse Ox 98.0 F 101 H 18 146/88 H 99 04/15/19 12:00 04/15/19 12:00 04/15/19 12:00 04/15/19 12:00 04/15/19 12:00 Intake & Output 04/14/19 04/15/19 04/16/19 06:59 06:59 06:59 Intake Total 1999 4188 1000 Output Total 0 Balance 1999 4188 1000 Weight 96.9 kg 96.5 kg General appearance: PRESENT: no acute distress, well-developed, well-nourished Head exam: PRESENT: atraumatic, normocephalic Respiratory exam: PRESENT: clear to auscultation genet. ABSENT: rales, rhonchi, wheezes Cardiovascular exam: PRESENT: RRR. ABSENT: diastolic murmur, rubs, systolic murmur GI/Abdominal exam: PRESENT: tenderness Extremities exam: PRESENT: full ROM. ABSENT: calf tenderness, clubbing, pedal edema Neurological exam: PRESENT: alert, awake, oriented to person, oriented to place, oriented to time, oriented to situation, CN II-XII grossly intact. ABSENT: motor sensory deficit Skin exam: PRESENT: dry, intact, warm. ABSENT: cyanosis, rash Results Laboratory Results: 04/15/19 05:16 04/15/19 05:16 04/15/19 04/15/19 04/15/19 05:16 05:16 05:16 WBC 8.0 RBC 5.16 Hgb 12.5 L Hct 38.1 MCV 74 L MCH 24.2 L MCHC 32.8 RDW 15.2 H Plt Count 107 L Seg Neutrophils % 77.9 Lymphocytes % 6.9 L Monocytes % 13.6 H Eosinophils % 1.4 Basophils % 0.2 Absolute Neutrophils 6.3 Absolute Lymphocytes 0.6 Absolute Monocytes 1.1 Absolute Eosinophils 0.1 Absolute Basophils 0.0 Sodium 132.7 L Potassium 4.3 Chloride 97 L Carbon Dioxide 22 Anion Gap 14 BUN 3 L Creatinine 0.52 Est GFR ( Amer) > 60 Est GFR (Non-Af Amer) > 60 Glucose 68 L Calcium 9.2 Magnesium 1.7 Total Bilirubin 1.2 AST 43 ALT 48 Alkaline Phosphatase 72 Total Protein 6.2 L Albumin 3.4 L Impressions: Abdomen/Pelvis CT 04/14/19 00:00 IMPRESSION: 1. DIFFUSE THICKENING AND INFLAMMATION OF THE PANCREAS CONSISTENT WITH ACUTE PANCREATITIS. THERE IS ASSOCIATED FLUID IN THE PERIPANCREATIC TISSUES EXTENDING INTO THE PERICOLIC GUTTERS AND THE DEPENDENT PORTION OF THE PELVIS. HOMOGENEOUS ENHANCEMENT OF THE PANCREAS WITH NO EVIDENCE OF SIGNIFICANT COMPLICATION AT THIS TIME. 2. NO OTHER SIGNIFICANT OR ACUTE FINDINGS IN THE ABDOMEN OR PELVIS. Abdomen Ultrasound 04/14/19 03:14 IMPRESSION: Fatty liver. No evidence of cholelithiasis or acute cholecystitis. copyright 2010 [employer]- All Rights Reserved Assessment and Plan - Diagnosis (1) Acute on chronic pancreatitis Is this a current diagnosis for this admission?: Yes Plan: Improving. Still p.o. intolerant. Denies nausea or vomiting. History of chronic alcohol abuse. Last EtOH intake x1 week. UDS positive for opiates and marijuana. Continue IV fluids guided by volume status. Clear liquids as tolerated. Monitor vitals. Continue opioid analgesics as needed, taper when possible. (2) Tobacco abuse Is this a current diagnosis for this admission?: Yes Plan: Tobacco Dependence patient received tobacco cessation counseling . Started on NicoDerm patch. (3) Hypertension Is this a current diagnosis for this admission?: Yes Plan: Likely worsened by acute pancreatitis. Amlodipine 5 mg p.o. daily, hydralazine as needed. Adjust meds as needed. Out patient PCP follow-up.
[2019-04-15 16:54] VITALS: BP 134/79
[2019-04-15] MEDS ORDERED: METOPROLOL TARTRATE PF/INJ 5 MG/5 ML SDV IV ONE ×2 (18:21→18:30)
--- NOTE | 2019-04-18 15:08 | PDOC DISCHARGE SUMMARY ---
General - Admit/Disc Date/PCP Admission Date/Primary Care Provider: 04/14/19 05:19 Discharge Date: 04/15/19 - Discharge Diagnosis (1) Acute on chronic pancreatitis Is this a current diagnosis for this admission?: Yes (2) Tobacco abuse Is this a current diagnosis for this admission?: Yes (3) Hypertension Is this a current diagnosis for this admission?: Yes - Additional Information Resuscitation Status: Full Code Discharge Diet: As Tolerated Discharge Activity: Activity As Tolerated Prescriptions: Amlodipine Besylate [Norvasc 5 mg Tablet] 5 mg PO DAILY 30 Days #30 tablet Ondansetron HCl [Zofran 4 mg Tablet] 1 tab PO Q6H PRN 4 Days #16 tablet PRN Reason: Home Medications: Amlodipine Besylate [Norvasc 5 mg Tablet] 5 mg PO DAILY 30 Days #30 tablet 04/15/19 Ondansetron HCl [Zofran 4 mg Tablet] 1 tab PO Q6H PRN 4 Days #16 tablet 04/15/19 History of Present Illness History of Present Illness: SILVIA TARIQ is a 44 year old male with a past medical history of tobacco, cannabis, alcohol dependence and alcohol-related pancreatitis. He presents with 3 days of poor p.o. intake secondary to epigastric pain patient admits to recent alcohol use 1 week ago. He was seen in the emergency room earlier in the day for the same and was tolerating clear liquids and subsequently discharged home with follow-up PRN. Patient had intractable pain with nausea prompting reevaluation. Reevaluation of lipase from 600-7000 over the last 12 hours. Abdominal ultrasound and bilirubin is unremarkable he receives symptomatic management and referred to the hospitalist for admission. Hospital Course Hospital Course: (1) Acute on chronic pancreatitis Improved. Patient diet was advanced actually to regular diet which he tolerated. Normal bowel and bladder movements. History of chronic alcohol abuse. Last EtOH intake x1 week. UDS positive for opiates and marijuana. Restarted on IV fluids, antiemetics, opiate analgesics. (2) Tobacco abuse Tobacco Dependence patient received tobacco cessation counseling . Started on NicoDerm patch. (3) Hypertension Improved. Was restart amlodipine 5 mg p.o. daily and hydralazine as needed. Patient was encouraged to follow-up with PCP as soon as possible. He was discharged on amlodipine 5 mg p.o. daily. Physical Exam Vital Signs: Temp Pulse Resp BP Pulse Ox 98.4 F 109 H 18 134/79 H 97 04/15/19 18:53 04/15/19 18:53 04/15/19 18:53 04/15/19 18:53 04/15/19 18:53 General appearance: PRESENT: no acute distress, well-developed, well-nourished Head exam: PRESENT: atraumatic, normocephalic Eye exam: PRESENT: conjunctiva pink, EOMI, PERRLA. ABSENT: scleral icterus Ear exam: PRESENT: normal external ear exam Mouth exam: PRESENT: moist, tongue midline Neck exam: ABSENT: carotid bruit, JVD, lymphadenopathy, thyromegaly Respiratory exam: PRESENT: clear to auscultation genet. ABSENT: rales, rhonchi, wheezes Cardiovascular exam: PRESENT: RRR. ABSENT: diastolic murmur, rubs, systolic murmur Pulses: PRESENT: normal dorsalis pedis pul Vascular exam: PRESENT: normal capillary refill GI/Abdominal exam: PRESENT: normal bowel sounds, soft, tenderness. ABSENT: distended, guarding, mass, organolmegaly, rebound Rectal exam: PRESENT: deferred Extremities exam: PRESENT: full ROM. ABSENT: calf tenderness, clubbing, pedal edema Neurological exam: PRESENT: alert, awake, oriented to person, oriented to place, oriented to time, oriented to situation, CN II-XII grossly intact. ABSENT: motor sensory deficit Psychiatric exam: PRESENT: appropriate affect, normal mood. ABSENT: homicidal ideation, suicidal ideation Skin exam: PRESENT: dry, intact, warm. ABSENT: cyanosis, rash Results Laboratory Results: 04/15/19 05:16 04/15/19 05:16 Impressions: Abdomen/Pelvis CT 04/14/19 00:00 IMPRESSION: 1. DIFFUSE THICKENING AND INFLAMMATION OF THE PANCREAS CONSISTENT WITH ACUTE PANCREATITIS. THERE IS ASSOCIATED FLUID IN THE PERIPANCREATIC TISSUES EXTENDING INTO THE PERICOLIC GUTTERS AND THE DEPENDENT PORTION OF THE PELVIS. HOMOGENEOUS ENHANCEMENT OF THE PANCREAS WITH NO EVIDENCE OF SIGNIFICANT COMPLICATION AT THIS TIME. 2. NO OTHER SIGNIFICANT OR ACUTE FINDINGS IN THE ABDOMEN OR PELVIS. Abdomen Ultrasound 04/14/19 03:14 IMPRESSION: Fatty liver. No evidence of cholelithiasis or acute cholecystitis. copyright 2010 [employer]- All Rights Reserved Qualifiers - * PATIENT BEING DISCHARGED WITH ANY OF THE FOLLOWING DIAGNOSIS: No Acute Heart Failure - Is this a Heart Failure Patient?: No LVEF < 40%?: No- if no continue to question #3 3. Anticoagulant therapy for permanect/persistent/paraoxysmal Afib or Aflutter: N/A - NA
== END 2019-04-15 19:20 | disposition home or self-care (01) | DRG 440 ==
LOC: ER 23:49 → EH 04-14 05:19 → 4N 04-14 06:35
PROVIDERS: ADMIT Internal Medicine; ATTEND Internal Medicine
DX: K85.20 Alcohol induced acute pancreatitis without necrosis or infection (principal); K86.0 Alcohol-induced chronic pancreatitis; I10 Essential (primary) hypertension; E86.0 Dehydration; F17.210 Nicotine dependence, cigarettes, uncomplicated; F12.90 Cannabis use, unspecified, uncomplicated; F10.20 Alcohol dependence, uncomplicated; Y90.0 Blood alcohol level of less than 20 mg/100 ml; Z71.6 Tobacco abuse counseling
CPT/HCPCS: 36415; 74177; 76705; 80053; 80307; 81001; 82962; 83036; 83690; 83735; 85025; 96361; 96374; 96375; 99285; J0360; J1170; J1885; J2405; J2550; J3475; J3490; J7030; J7042; J7120; S0028

== ENCOUNTER 2019-07-03 05:27 | Inpatient (IN) | payer SELFPAY ==
[2019-07-03] MEDS ORDERED: MORPHINE SULFATE 10 MG/ML INJ IV ONE (05:39)
[2019-07-03] MEDS ORDERED: NORMAL SALINE 1000 ML 1,000 ML IV ONE ×2 (05:39→07:02)
--- NOTE | 2019-07-03 05:42 | ER Document Report ---
ED Medical Screen (RME) - General Stated Complaint: ABDOMINAL PAIN Time Seen by Provider: 07/03/19 05:35 Notes: 44-year-old male comes by EMS for chief complaint of upper abdominal pain and vomiting. Pain does radiate to his back. He has a history of pancreatitis, re ports he used to abuse alcohol, states his last drink was over 1 week ago. He denies fever. He denies blood in the vomit. He states he vomited about 20 times over the past day. TRAVEL OUTSIDE OF THE [place] IN LAST 30 DAYS: No - Related Data Allergies/Adverse Reactions: Penicillins Allergy (Verified 04/13/19 10:46) prils Allergy (Uncoded 04/13/19 10:46) Past Medical History Pulmonary Medical History: Reports: Hx Asthma Renal/ Medical History: Denies: Hx Peritoneal Dialysis Physical Exam - Abdominal Tenderness: Tender - Generalized abdominal tenderness, worse in the general upper abdomen but no specific guarding is noted no rigidity Course - Re-evaluation Re-evalutation: I have greeted and performed a rapid initial assessment of this patient. A comprehensive ED assessment and evaluation of the patient, analysis of test results and completion of the medical decision making process will be conducted by additional ED providers.
[2019-07-03 05:56] LABS: ABSOLUTE BASOPHILS # (AUTO) 0.1 10^3/uL (0.0-0.2); ABSOLUTE EOSINOPHILS # (AUTO) 0.1 10^3/uL (0.0-0.6); ABSOLUTE LYMPHOCYTES (AUTO) 0.9 10^3/uL (0.5-4.7); ABSOLUTE MONOCYTES (AUTO) 0.7 10^3/uL (0.1-1.4); ABSOLUTE NEUT (AUTO) 3.7 10^3/uL (1.7-8.2); BASOPHILS % (AUTO) 1.2 % (0-2); EOSINOPHILS % (AUTO) 1.6 % (0-6); HEMATOCRIT 40.8 % (37.9-51.0); HEMOGLOBIN 13.5 g/dL (13.5-17.0); LYMPHOCYTES % (AUTO) 17.1 % (13-45); MEAN CORPUSCULAR HEMOGLOBIN 24.5 pg (27.0-33.4); MEAN CORPUSCULAR VOLUME 74 fl (80-97); MONOCYTES % (AUTO) 12.9 % (3-13); PLATELET COUNT 101 10^3/uL (150-450); RED BLOOD COUNT 5.49 10^6/uL (4.35-5.55); RED CELL DISTRIBUTION WIDTH 14.9 % (11.5-14.0); SEGMENTED NEUTROPHILS % (AUTO) 67.2 % (42-78); TOTAL CELLS COUNTED % (AUTO) 100 %; WHITE BLOOD COUNT 5.6 10^3/uL (4.0-10.5)
[2019-07-03 06:14] LABS: ALBUMIN 4.9 g/dL (3.5-5.0); ALCOHOL < 10 mg/dL (NONE DETECTED); ALKALINE PHOSPHATASE 145 U/L (38-126); ANION GAP 14 (5-19); ASPARTATE AMINO TRANSFERASE 274 U/L (17-59); BILIRUBIN,DIRECT 0.6 mg/dL (0.0-0.4); BILIRUBIN,TOTAL 1.6 mg/dL (0.2-1.3); BLOOD UREA NITROGEN 13 mg/dL (7-20); CALCIUM 10.4 mg/dL (8.4-10.2); CARBON DIOXIDE 28 mmol/L (22-30); CHLORIDE 95 mmol/L (98-107); GLUCOSE 91 mg/dL (75-110); POTASSIUM 4.2 mmol/L (3.6-5.0); TOTAL PROTEIN 7.9 g/dL (6.3-8.2)
[2019-07-03] MEDS ORDERED: PANTOPRAZOLE SODIUM 40 MG VIAL IV ONE (07:03)
[2019-07-03] MEDS ORDERED: HYDROMORPHONE HCL INJ/PF 2 MG/ML AMPULE IV ONE (07:05)
[2019-07-03] MEDS ORDERED: ONDANSETRON HCL INJ/PF 4 MG/2 ML SDV IV ONE (07:05)
--- NOTE | 2019-07-03 07:05 | ER Document Report ---
Entered by ARACELY ALDANA SCRIBE 07/03/19 0705 Acting as scribe for:DAVIE BUSCH MD ED GI/ - General Chief Complaint: Abdominal Pain Stated Complaint: ABDOMINAL PAIN Time Seen by Provider: 07/03/19 05:35 Mode of Arrival: Ambulatory Information source: Patient Notes: Patient is a 44 year old male with chronic pancreatitis that presents to the emergency department today with complaints of upper abdominal pain that radiates to his back for the last x2 days. Patient states that he is "usually guilty of drinking alcohol when his pancreatitis flares" but he denies having any EtOH prior to this flare. Patient states he gets nauseated and vomits anytime he trie s to drink anything. TRAVEL OUTSIDE OF THE [place] IN LAST 30 DAYS: No - Related Data Allergies/Adverse Reactions: Penicillins Allergy (Verified 04/13/19 10:46) prils Allergy (Uncoded 04/13/19 10:46) Past Medical History - General Information source: Patient - Social History Smoking Status: Current Every Day Smoker Cigarette use (# per day): Yes Frequency of alcohol use: Social Drug Abuse: None Lives with: Family Family History: Reviewed & Not Pertinent Patient has suicidal ideation: No Patient has homicidal ideation: No Pulmonary Medical History: Reports: Hx Asthma GI Medical History: Reports: Hx Pancreatitis Past Surgical History: Reports: Hx Orthopedic Surgery - R hand Review of Systems - Review of Systems Constitutional: No symptoms reported EENT: No symptoms reported Cardiovascular: No symptoms reported Respiratory: No symptoms reported Gastrointestinal: See HPI, Abdominal pain, Nausea, Vomiting Genitourinary: No symptoms reported Male Genitourinary: No symptoms reported Musculoskeletal: No symptoms reported Skin: No symptoms reported Hematologic/Lymphatic: No symptoms reported Neurological/Psychological: No symptoms reported -: Yes All other systems reviewed and negative Physical Exam - Vital signs Vitals: Temp Pulse Resp BP Pulse Ox 97.9 F 69 20 188/92 H 96 07/03/19 05:32 07/03/19 05:32 07/03/19 05:32 07/03/19 05:32 07/03/19 05:32 - Notes Notes: Physical Exam: General: Alert, appears well. HEENT: Normocephalic. Atraumatic. PERRL. Extraocular movements intact. Noel pharynx clear. Neck: Supple. Non-tender. Respiratory: No respiratory distress. Clear and equal breath sounds bilaterally. Cardiovascular: Regular rate and rhythm. Abdominal: Epigastric tenderness with palpation. Hollow sounding percussion. No distension. Normal Bowel Sounds. Back: No gross abnormalities. Extremities: Moves all four extremities. Upper extremities: Normal inspection. Normal ROM. Lower extremities: Normal inspection. No edema. Normal ROM. Neurological: Normal cognition. AAOx4. Normal speech. Psychological: Normal affect. Normal Mood. Skin: Warm. Dry. Normal color. Course - Vital Signs Vital signs: Temp Pulse Resp BP Pulse Ox 97.9 F 69 20 188/92 H 96 07/03/19 05:32 07/03/19 05:32 07/03/19 05:32 07/03/19 05:32 07/03/19 05:32 - Laboratory Result Diagrams: 07/03/19 05:40 07/03/19 05:40 Laboratory results interpreted by me: 07/03/19 07/03/19 05:40 05:40 MCV 74 L MCH 24.5 L RDW 14.9 H Plt Count 101 L Chloride 95 L Calcium 10.4 H Total Bilirubin 1.6 H Direct Bilirubin 0.6 H AST 274 H Alkaline Phosphatase 145 H Lipase 857.1 H - EKG Interpretation by Ct EKG shows normal: Sinus rhythm, Mccloud, Intervals, QRS Complexes, ST-T Waves Rate: Normal - 80 Rhythm: NSR - Consults PAOLA Robles Time consulted: 07:50 Consulted provider: will come to ER Discharge - Discharge Clinical Impression: Hypertension Qualifiers: Hypertension type: essential hypertension Qualified Code(s): I10 - Essential (primary) hypertension Acute pancreatitis Qualifiers: Pancreatitis type: alcohol induced Acute pancreatitis complication: unspecified Qualified Code(s): K85.20 - Alcohol induced acute pancreatitis without necrosis or infection Vomiting Qualifiers: Vomiting type: unspecified Vomiting Intractability: non-intractable Nausea presence: with nausea Qualified Code(s): R11.2 - Nausea with vomiting, unspecified Condition: Stable Disposition: ADMITTED INPATIENT Admitting Provider: Jaden (Hospitalist) Unit Admitted: Medical Floor Scribe Attestation: 07/03/19 07:07 I personally performed the services described in the documentation, reviewed and edited the documentation which was dictated to the scribe in my presence, and it accurately records my words and actions. I personally performed the services described in the documentation, reviewed and edited the documentation which was dictated to the scribe in my presence, and it accurately records my words and actions.
[2019-07-03] MEDS ORDERED: HYDRALAZINE HCL INJ/PF 20 MG/1 ML SDV IV ONE (07:53)
[2019-07-03 09:25] LABS: APPEARANCE,URINE CLEAR; BILIRUBIN,URINE NEGATIVE (NEGATIVE); COLOR,URINE AMBER; GLUCOSE, URINE NEGATIVE (NEGATIVE); KETONES,URINE 80 mg/dL (NEGATIVE); LEUKOCYTE ESTERASE,URINE NEGATIVE (NEGATIVE); NITRITE,URINE NEGATIVE (NEGATIVE); PROTEIN,URINE 30 mg/dL (NEGATIVE); URINE SPECIFIC GRAVITY 1.026
[2019-07-03] MEDS ORDERED: MAGNESIUM HYDROXIDE SUSP 30 ML UDCUP PO PRN (10:56)
[2019-07-03] MEDS ORDERED: GLUCAGON,HUMAN RECOMB 1 MG INJ SUBCUT PRN (10:56)
[2019-07-03] MEDS ORDERED: ONDANSETRON HCL INJ/PF 4 MG/2 ML SDV IV PRN (10:56)
[2019-07-03] MEDS ORDERED: DEXTROSE 50%-WATER 25 GM/50 ML DISP.SYRIN IV PRN ×2 (10:56)
[2019-07-03] MEDS ORDERED: DEXTROSE 40% GEL 15 GM TUBE PO PRN ×2 (10:56)
[2019-07-03 11:27] LABS: INTERNATIONAL RATION (INR) 0.97; PROTHROMBIN TIME 12.8 SEC (11.4-15.4)
[2019-07-03] MEDS: ENOXAPARIN SODIUM INJ 40 MG/0.4 ML DISP.SYRIN SUBCUT SCH (11:27)
[2019-07-03] MEDS: PANTOPRAZOLE SODIUM 40 MG VIAL IV SCH ×2 (11:28→21:36)
[2019-07-03] MEDS: MORPHINE SULFATE 10 MG/ML INJ IV PRN ×4 (11:34→23:54)
[2019-07-03] MEDS: PROMETHAZINE HCL INJ 25 MG/1 ML VIAL IV PRN ×2 (11:35→15:35)
[2019-07-03] MEDS: NORMAL SALINE 1000 ML 1,000 ML IV PRN ×2 (11:35→17:39)
[2019-07-03 12:16] LABS: URINE AMPHETAMINES SCREEN NEGATIVE; URINE BARBITURATES SCREEN NEGATIVE; URINE BENZODIAZEPINES SCREEN NEGATIVE; URINE COCAINE SCREEN NEGATIVE; URINE MARIJUANA (THC) SCREEN NEGATIVE; URINE METHADONE SCREEN NEGATIVE; URINE PHENCYCLIDINE SCREEN NEGATIVE
[2019-07-03] MEDS: ACETAMINOPHEN 325 MG TABLET PO PRN (14:24)
--- NOTE | 2019-07-03 15:37 | RADIOLOGY REPORT (SQ) ---
EXAM DESCRIPTION: CHEST SINGLE VIEW COMPLETED DATE/TIME: 07/03/2019 3:28 pm REASON FOR STUDY: Abdominal pain COMPARISON: 04/13/2019 EXAM PARAMETERS: NUMBER OF VIEWS: One view. TECHNIQUE: Single frontal radiographic view of the chest acquired. RADIATION DOSE: NA LIMITATIONS: None. FINDINGS: LUNGS AND PLEURA: No opacities, masses or pneumothorax. No pleural effusion. MEDIASTINUM AND HILAR STRUCTURES: No masses. Contour normal. HEART AND VASCULAR STRUCTURES: Heart normal in size. Normal vasculature. BONES: No acute findings. HARDWARE: None in the chest. OTHER: No other significant finding. IMPRESSION: NO ACUTE RADIOGRAPHIC FINDING IN THE CHEST. TECHNICAL DOCUMENTATION: JOB ID: [id number] [employer]- All Rights Reserved Reading location - IP/workstation name: [email or web address]
[2019-07-03] MEDS: LORAZEPAM INJ 2 MG/1 ML VIAL IV PRN ×2 (17:36→21:36)
[2019-07-04] MEDS: LORAZEPAM INJ 2 MG/1 ML VIAL IV PRN ×5 (03:00→20:24)
[2019-07-04] MEDS: MORPHINE SULFATE 10 MG/ML INJ IV PRN ×5 (04:11→22:28)
[2019-07-04] MEDS: NORMAL SALINE 1000 ML 1,000 ML IV PRN ×3 (04:14→20:28)
[2019-07-04 05:30] LABS: ABSOLUTE LYMPHOCYTES (AUTO) 0.5 10^3/uL (0.5-4.7); ABSOLUTE MONOCYTES (AUTO) 0.9 10^3/uL (0.1-1.4); ABSOLUTE NEUT (AUTO) 6.8 10^3/uL (1.7-8.2); BASOPHILS % (AUTO) 0.2 % (0-2); EOSINOPHILS % (AUTO) 0.2 % (0-6); HEMATOCRIT 43.8 % (37.9-51.0); HEMOGLOBIN 14.4 g/dL (13.5-17.0); LYMPHOCYTES % (AUTO) 5.8 % (13-45); MEAN CORPUSCULAR HEMOGLOBIN 24.5 pg (27.0-33.4); MEAN CORPUSCULAR VOLUME 74 fl (80-97); MONOCYTES % (AUTO) 10.8 % (3-13); RED BLOOD COUNT 5.89 10^6/uL (4.35-5.55); RED CELL DISTRIBUTION WIDTH 14.7 % (11.5-14.0); TOTAL CELLS COUNTED % (AUTO) 100 %; WHITE BLOOD COUNT 8.2 10^3/uL (4.0-10.5)
[2019-07-04 05:51] LABS: AMYLASE 973 U/L (30-110); ANION GAP 11 (5-19); BLOOD UREA NITROGEN 10 mg/dL (7-20); CALCIUM 9.4 mg/dL (8.4-10.2); CARBON DIOXIDE 29 mmol/L (22-30); CHLORIDE 95 mmol/L (98-107); GLUCOSE 101 mg/dL (75-110); POTASSIUM 4.2 mmol/L (3.6-5.0)
[2019-07-04 05:54] LABS: PLATELET COUNT 93 10^3/uL (150-450)
[2019-07-04] MEDS: ACETAMINOPHEN 325 MG TABLET PO PRN (07:26)
[2019-07-04] MEDS: PROMETHAZINE HCL INJ 25 MG/1 ML VIAL IV PRN ×2 (07:26→13:37)
[2019-07-04] MEDS: ENOXAPARIN SODIUM INJ 40 MG/0.4 ML DISP.SYRIN SUBCUT SCH (10:09)
[2019-07-04] MEDS: DOCUSATE SODIUM 100 MG CAPSULE PO SCH (10:09)
[2019-07-04] MEDS: PANTOPRAZOLE SODIUM 40 MG VIAL IV SCH ×2 (10:11→22:28)
--- NOTE | 2019-07-04 11:37 | PDOC PROGRESS REPORT ---
Subjective Progress Note for:: 07/04/19 Subjective:: No adverse events overnight. No new complaints. He still having some abdominal pain. He is starting to put out some urine. He was asking if I was going to send him home with a prescription for pain medication. I told him that his pain should be resolved by the time he leaves the hospital, and if he has this sort of pain again he does not need to just take pain medication, he needs to come to the hospital. Reason For Visit: HISTORY ALCOHOL ABUSE, HISTORY PANCREATITIS Physical Exam Vital Signs: Temp Pulse Resp BP Pulse Ox 97.3 F 101 H 16 150/107 H 98 07/04/19 07:08 07/04/19 07:08 07/04/19 07:08 07/04/19 07:08 07/04/19 07:08 Intake & Output 07/03/19 07/04/19 07/05/19 06:59 06:59 06:59 Intake Total 1000 3210 Balance 1000 3210 Weight 99.1 kg 98.1 kg General appearance: PRESENT: no acute distress, cooperative, disheveled Respiratory exam: PRESENT: clear to auscultation genet, symmetrical, unlabored. ABSENT: accessory muscle use, chest wall tenderness, crackles, prolonged expiratory phas, rhonchi, tachypnea, wheezes Cardiovascular exam: PRESENT: RRR, +S1, +S2 Pulses: PRESENT: normal carotid pulses Vascular exam: PRESENT: normal capillary refill GI/Abdominal exam: PRESENT: hypoactive bowel sounds, soft, tenderness - Mild and diffuse. ABSENT: distended, guarding, rebound Extremities exam: ABSENT: clubbing, pedal edema Musculoskeletal exam: PRESENT: normal inspection. ABSENT: deformity Neurological exam: PRESENT: alert, awake, oriented to person, oriented to place, oriented to situation Psychiatric exam: PRESENT: flat affect Skin exam: PRESENT: dry, warm Results Laboratory Results: 07/04/19 04:12 07/04/19 04:12 07/03/19 07/04/19 07/04/19 13:47 04:12 04:12 WBC 8.2 RBC 5.89 H Hgb 14.4 Hct 43.8 MCV 74 L MCH 24.5 L MCHC 33.0 RDW 14.7 H Plt Count 93 L Seg Neutrophils % 83.0 H Sodium 135.0 L Potassium 4.2 Chloride 95 L Carbon Dioxide 29 Anion Gap 11 BUN 10 Creatinine 0.59 Est GFR ( Amer) > 60 Glucose 101 Calcium 9.4 Phosphorus 4.0 Magnesium 1.6 Ammonia 10.2 Amylase 973 H Lipase 9203.4 H 07/03/19 05:40 Creatine Kinase 149 Impressions: Chest X-Ray 07/03/19 11:03 IMPRESSION: NO ACUTE RADIOGRAPHIC FINDING IN THE CHEST. Assessment and Plan - Diagnosis (1) Acute pancreatitis Qualifiers: Pancreatitis type: alcohol induced Acute pancreatitis complication: unspecified Qualified Code(s): K85.20 - Alcohol induced acute pancreatitis without necrosis or infection Is this a current diagnosis for this admission?: Yes Plan: He continues to be n.p.o. on IV fluids. He has PRN pain medication. His lipase went up substantially from yesterday. He was here just over 2 months ago for the same problem. EtOH was negative on his tox screen. (2) Hypertension Qualifiers: Hypertension type: essential hypertension Qualified Code(s): I10 - Essential (primary) hypertension Is this a current diagnosis for this admission?: Yes Plan: He has some PRN medication available for elevated pressures. We will put him on some oral medication once he is able to take p.o. (3) Vomiting Qualifiers: Vomiting type: unspecified Vomiting Intractability: non-intractable Nausea presence: with nausea Qualified Code(s): R11.2 - Nausea with vomiting, unspecified Is this a current diagnosis for this admission?: Yes Plan: Resolved - Time Time Spent with patient: 15-24 minutes
[2019-07-04] MEDS ORDERED: NICOTINE 7 MG/24 HR PATCH.TD24 TD ONE (14:30)
[2019-07-04] MEDS: NICOTINE 21 MG/24 HR PATCH.TD24 TD SCH (14:50)
[2019-07-04] MEDS: ZOLPIDEM TARTRATE 5 MG TABLET PO PRN (22:28)
[2019-07-05] MEDS: MORPHINE SULFATE 10 MG/ML INJ IV PRN ×4 (04:33→21:28)
[2019-07-05] MEDS: LORAZEPAM INJ 2 MG/1 ML VIAL IV PRN ×4 (04:33→18:06)
[2019-07-05 07:17] LABS: ABSOLUTE EOSINOPHILS # (AUTO) 0.1 10^3/uL (0.0-0.6); ABSOLUTE LYMPHOCYTES (AUTO) 0.8 10^3/uL (0.5-4.7); BASOPHILS % (AUTO) 0.3 % (0-2); EOSINOPHILS % (AUTO) 0.8 % (0-6); HEMATOCRIT 38.2 % (37.9-51.0); HEMOGLOBIN 12.5 g/dL (13.5-17.0); LYMPHOCYTES % (AUTO) 8.8 % (13-45); MEAN CORPUSCULAR HEMOGLOBIN 24.5 pg (27.0-33.4); MEAN CORPUSCULAR HGB CONC 32.8 g/dL (32.0-36.0); MEAN CORPUSCULAR VOLUME 75 fl (80-97); MONOCYTES % (AUTO) 11.6 % (3-13); RED BLOOD COUNT 5.12 10^6/uL (4.35-5.55); RED CELL DISTRIBUTION WIDTH 15.1 % (11.5-14.0); SEGMENTED NEUTROPHILS % (AUTO) 78.5 % (42-78); TOTAL CELLS COUNTED % (AUTO) 100 %
[2019-07-05 07:35] LABS: AMYLASE 315 U/L (30-110); ANION GAP 8 (5-19); BLOOD UREA NITROGEN 8 mg/dL (7-20); CALCIUM 8.7 mg/dL (8.4-10.2); CARBON DIOXIDE 27 mmol/L (22-30); CHLORIDE 96 mmol/L (98-107); GLUCOSE 75 mg/dL (75-110); POTASSIUM 3.5 mmol/L (3.6-5.0)
[2019-07-05 07:42] LABS: PLATELET COUNT 80 10^3/uL (150-450)
[2019-07-05] MEDS: ENOXAPARIN SODIUM INJ 40 MG/0.4 ML DISP.SYRIN SUBCUT SCH (09:15)
[2019-07-05] MEDS: DOCUSATE SODIUM 100 MG CAPSULE PO SCH (09:15)
[2019-07-05] MEDS: PANTOPRAZOLE SODIUM 40 MG VIAL IV SCH ×2 (09:18→21:28)
[2019-07-05] MEDS: NICOTINE 21 MG/24 HR PATCH.TD24 TD SCH (09:18)
[2019-07-05] MEDS: PROMETHAZINE HCL INJ 25 MG/1 ML VIAL IV PRN (13:21)
--- NOTE | 2019-07-05 16:22 | PDOC PROGRESS REPORT ---
Subjective Progress Note for:: 07/05/19 Subjective:: He had multiple episodes of confusion last night and required medication with Ativan. He had multiple episodes of confusion overnight a few yesterday and he had one this morning as well. At one point he was wanting to leave the hospital AGAINST MEDICAL ADVICE but given the fact that we believe he is acutely in alcohol withdrawal as evidenced by his confusion and tremulousness along with the fact that he had had some Ativan we felt like he did not have sufficient decision-making capacity in his current state. Reason For Visit: HISTORY ALCOHOL ABUSE, HISTORY PANCREATITIS Physical Exam Vital Signs: Temp Pulse Resp BP Pulse Ox 98.1 F 121 H 16 159/92 H 98 07/05/19 15:25 07/05/19 15:25 07/05/19 15:25 07/05/19 15:25 07/05/19 15:25 Intake & Output 07/04/19 07/05/19 07/06/19 06:59 06:59 06:59 Intake Total 3210 2300 520 Balance 3210 2300 520 Weight 98.1 kg 98.8 kg General appearance: PRESENT: no acute distress, a bit subdued because he just had a dose of Ativan, disheveled Respiratory exam: PRESENT: clear to auscultation genet, symmetrical, unlabored. ABSENT: accessory muscle use, chest wall tenderness, crackles, prolonged expiratory phas, rhonchi, tachypnea, wheezes Cardiovascular exam: PRESENT: RRR, +S1, +S2 Pulses: PRESENT: normal carotid pulses Vascular exam: PRESENT: normal capillary refill GI/Abdominal exam: PRESENT: hypoactive bowel sounds, soft, tenderness - Mild and diffuse. ABSENT: distended, guarding, rebound Extremities exam: ABSENT: clubbing, pedal edema Musculoskeletal exam: PRESENT: normal inspection. ABSENT: deformity Neurological exam: PRESENT: awake, oriented to person Psychiatric exam: PRESENT: flat affect Skin exam: PRESENT: dry, warm Results Laboratory Results: 07/05/19 06:29 07/05/19 06:29 07/05/19 07/05/19 06:29 06:29 WBC 9.0 RBC 5.12 Hgb 12.5 L Hct 38.2 MCV 75 L MCH 24.5 L MCHC 32.8 RDW 15.1 H Plt Count 80 L Seg Neutrophils % 78.5 H Sodium 131.4 L Potassium 3.5 L Chloride 96 L Carbon Dioxide 27 Anion Gap 8 BUN 8 Creatinine 0.65 Est GFR ( Amer) > 60 Glucose 75 Calcium 8.7 Phosphorus 3.0 Magnesium 1.7 Amylase 315 H Lipase 1958.5 H 07/03/19 05:40 Creatine Kinase 149 Impressions: Chest X-Ray 07/03/19 11:03 IMPRESSION: NO ACUTE RADIOGRAPHIC FINDING IN THE CHEST. Assessment and Plan - Diagnosis (1) Acute pancreatitis Qualifiers: Pancreatitis type: alcohol induced Acute pancreatitis complication: unspecified Qualified Code(s): K85.20 - Alcohol induced acute pancreatitis without necrosis or infection Is this a current diagnosis for this admission?: Yes Plan: He remains n.p.o. and is getting IV fluids. Lipase is trended down from yesterday. Continue current treatment. Depending on his mental status and his abdominal pain tomorrow, we may consider advancing his diet to liquids. (2) Hypertension Qualifiers: Hypertension type: essential hypertension Qualified Code(s): I10 - Essential (primary) hypertension Is this a current diagnosis for this admission?: Yes Plan: He has some PRN medication available for elevated pressures. We will put him on some oral medication once he is able to take p.o. (3) Vomiting Qualifiers: Vomiting type: unspecified Vomiting Intractability: non-intractable Nausea presence: with nausea Qualified Code(s): R11.2 - Nausea with vomiting, unspecified Is this a current diagnosis for this admission?: Yes Plan: Resolved (4) Alcohol withdrawal delirium, acute, hyperactive Is this a current diagnosis for this admission?: Yes Plan: Watching him closely giving him some PRN Ativan - Time Time Spent with patient: 15-24 minutes
[2019-07-05] MEDS: NORMAL SALINE 1000 ML 1,000 ML IV PRN (21:28)
[2019-07-05] MEDS: ZOLPIDEM TARTRATE 5 MG TABLET PO PRN (21:28)
[2019-07-06] MEDS: PROMETHAZINE HCL INJ 25 MG/1 ML VIAL IV PRN (00:31)
[2019-07-06] MEDS: LORAZEPAM INJ 2 MG/1 ML VIAL IV PRN ×2 (00:31→23:16)
[2019-07-06] MEDS: HYDRALAZINE HCL INJ/PF 20 MG/1 ML SDV IV PRN (00:43)
[2019-07-06] MEDS ORDERED: LORAZEPAM INJ 2 MG/1 ML VIAL ONE (02:14)
[2019-07-06] MEDS ORDERED: LORAZEPAM INJ 2 MG/1 ML VIAL IV ONE ×3 (02:15→04:00)
[2019-07-06] MEDS: MORPHINE SULFATE 10 MG/ML INJ IV PRN ×3 (03:34→20:15)
[2019-07-06 08:49] LABS: ABSOLUTE BASOPHILS # (AUTO) 0.1 10^3/uL (0.0-0.2); ABSOLUTE EOSINOPHILS # (AUTO) 0.2 10^3/uL (0.0-0.6); ABSOLUTE MONOCYTES (AUTO) 0.8 10^3/uL (0.1-1.4); ABSOLUTE NEUT (AUTO) 5.1 10^3/uL (1.7-8.2); BASOPHILS % (AUTO) 0.8 % (0-2); HEMATOCRIT 36.1 % (37.9-51.0); HEMOGLOBIN 11.8 g/dL (13.5-17.0); LYMPHOCYTES % (AUTO) 13.3 % (13-45); MEAN CORPUSCULAR HEMOGLOBIN 24.2 pg (27.0-33.4); MEAN CORPUSCULAR HGB CONC 32.6 g/dL (32.0-36.0); MEAN CORPUSCULAR VOLUME 74 fl (80-97); MONOCYTES % (AUTO) 11.9 % (3-13); RED BLOOD COUNT 4.85 10^6/uL (4.35-5.55); RED CELL DISTRIBUTION WIDTH 14.6 % (11.5-14.0); TOTAL CELLS COUNTED % (AUTO) 100 %; WHITE BLOOD COUNT 7.1 10^3/uL (4.0-10.5)
[2019-07-06 09:07] LABS: PLATELET COUNT 94 10^3/uL (150-450)
[2019-07-06 09:17] LABS: AMYLASE 207 U/L (30-110); ANION GAP 12 (5-19); BLOOD UREA NITROGEN 9 mg/dL (7-20); CARBON DIOXIDE 24 mmol/L (22-30); CHLORIDE 98 mmol/L (98-107); GLUCOSE 78 mg/dL (75-110); PHOSPHORUS 3.9 mg/dL (2.5-4.5); POTASSIUM 3.2 mmol/L (3.6-5.0)
[2019-07-06] MEDS: DOCUSATE SODIUM 100 MG CAPSULE PO SCH (09:49)
[2019-07-06] MEDS: PANTOPRAZOLE SODIUM 40 MG VIAL IV SCH ×2 (09:50→23:16)
[2019-07-06] MEDS: NICOTINE 21 MG/24 HR PATCH.TD24 TD SCH ×2 (09:50→11:51)
[2019-07-06] MEDS: ENOXAPARIN SODIUM INJ 40 MG/0.4 ML DISP.SYRIN SUBCUT SCH (09:50)
--- NOTE | 2019-07-06 16:45 | PDOC PROGRESS REPORT ---
Subjective Progress Note for:: 07/06/19 Subjective:: He had a lot of agitation and some hallucinations last night and required large doses of Ativan. He continued to require constant redirection this morning and wanted to leave AGAINST MEDICAL ADVICE. His gait was unsteady and he required close monitoring. He denied that he was having any abdominal pain. He made several claims, including that he was late for work, and he called a friend asking them to come help him find something, and the friend went to his house looking around for something but the patient neglected to tell the friend that he was in the hospital. He asked the nurse at one point overnight what happened to the baby that was in the corner of his room. The nurse informed him that there was no baby in the room and he seemed confused. Reason For Visit: ALCOHOL WITHDRAWAL, PANCREATITIS Physical Exam Vital Signs: Temp Pulse Resp BP Pulse Ox 97.9 F 121 H 16 135/102 H 100 07/06/19 11:45 07/06/19 11:45 07/06/19 11:45 07/06/19 11:45 07/06/19 11:45 Intake & Output 07/05/19 07/06/19 07/07/19 06:59 06:59 06:59 Intake Total 3300 780 Balance 3300 780 Weight 98.8 kg 98.8 kg General appearance: PRESENT: no acute distress, disheveled. ABSENT: cooperative Respiratory exam: PRESENT: clear to auscultation genet, symmetrical, unlabored. ABSENT: accessory muscle use, chest wall tenderness, crackles, prolonged expiratory phas, rhonchi, tachypnea, wheezes Cardiovascular exam: PRESENT: tachycardia Pulses: PRESENT: normal carotid pulses Vascular exam: PRESENT: normal capillary refill GI/Abdominal exam: PRESENT: normal bowel sounds, soft. ABSENT: distended, guar ding, rebound, tenderness Extremities exam: ABSENT: clubbing, pedal edema Musculoskeletal exam: PRESENT: normal inspection. ABSENT: deformity Neurological exam: PRESENT: alert, awake, oriented to person, other - Mildly tremulous. ABSENT: oriented to place, oriented to situation, normal gait - Unsteady Psychiatric exam: PRESENT: agitated Focused psych exam: PRESENT: delusional, paranoid, restlessness Skin exam: PRESENT: dry, warm Results Laboratory Results: 07/06/19 08:26 07/06/19 08:26 07/06/19 07/06/19 08:26 08:26 WBC 7.1 RBC 4.85 Hgb 11.8 L Hct 36.1 L MCV 74 L MCH 24.2 L MCHC 32.6 RDW 14.6 H Plt Count 94 L Seg Neutrophils % 71.0 Sodium 133.7 L Potassium 3.2 L Chloride 98 Carbon Dioxide 24 Anion Gap 12 BUN 9 Creatinine 0.50 L Est GFR ( Amer) > 60 Glucose 78 Calcium 9.0 Phosphorus 3.9 Magnesium 2.0 Amylase 207 H Lipase 584.5 H 07/03/19 05:40 Creatine Kinase 149 Impressions: Chest X-Ray 07/03/19 11:03 IMPRESSION: NO ACUTE RADIOGRAPHIC FINDING IN THE CHEST. Assessment and Plan - Diagnosis (1) Acute pancreatitis Qualifiers: Pancreatitis type: alcohol induced Acute pancreatitis complication: unspecified Qualified Code(s): K85.20 - Alcohol induced acute pancreatitis without necrosis or infection Is this a current diagnosis for this admission?: Yes Plan: He is denying any abdominal pain and so we gave him some liquids for lunch and he tolerated that well without any evidence of any pain. Run to try to advance him to a soft diet later today. (2) Hypertension Qualifiers: Hypertension type: essential hypertension Qualified Code(s): I10 - Esse ntial (primary) hypertension Is this a current diagnosis for this admission?: Yes Plan: I am going to start him on some metoprolol in the hopes that this will have some effect on his blood pressure to help his heart rate to come down just a little bit. (3) Vomiting Qualifiers: Vomiting type: unspecified Vomiting Intractability: non-intractable Nausea presence: with nausea Qualified Code(s): R11.2 - Nausea with vomiting, unspecified Is this a current diagnosis for this admission?: Yes Plan: Resolved (4) Alcohol withdrawal delirium, acute, hyperactive Is this a current diagnosis for this admission?: Yes Plan: The patient continues to deny that he is been drinking, but whenever he came into the ER he admitted that he had been, and that every time his pancreas is flared up on him it had been as a result of his drinking. He required large doses of Ativan overnight, and has required dosing a couple of times a day and has required constant surveillance and redirection. Given his acute medical condition and necessity for frequent administration of benzodiazepines and other psychoactive medications, he is not in any condition to make medical decisions on his own behalf. We will try to locate a point of contact for him that can be designated as a medical proxy until such time as he recovers capacity to make his own decisions. - Time Time Spent with patient: 25-34 minutes
[2019-07-06] MEDS: ZOLPIDEM TARTRATE 5 MG TABLET PO PRN (23:16)
[2019-07-06] MEDS: METOPROLOL SUCCINATE 50 MG TAB.SR.24H PO SCH (23:16)
[2019-07-07] MEDS: MORPHINE SULFATE 10 MG/ML INJ IV PRN (03:35)
[2019-07-07] MEDS: LORAZEPAM INJ 2 MG/1 ML VIAL IV PRN ×6 (03:36→21:20)
[2019-07-07] MEDS: ENOXAPARIN SODIUM INJ 40 MG/0.4 ML DISP.SYRIN SUBCUT SCH (09:48)
[2019-07-07] MEDS: DOCUSATE SODIUM 100 MG CAPSULE PO SCH (09:48)
[2019-07-07] MEDS: METOPROLOL SUCCINATE 50 MG TAB.SR.24H PO SCH ×2 (09:52→21:20)
[2019-07-07] MEDS: PANTOPRAZOLE SODIUM 40 MG VIAL IV SCH ×2 (09:52→23:00)
[2019-07-07] MEDS: NICOTINE 21 MG/24 HR PATCH.TD24 TD SCH (09:52)
[2019-07-07] MEDS ORDERED: DIPHENHYDRAMINE HCL 50 MG/ML VIAL IM PRN (12:30)
[2019-07-07] MEDS: HALOPERIDOL LACTATE INJ 5 MG/1 ML VIAL IM PRN ×2 (13:39→18:16)
[2019-07-07] MEDS: LORAZEPAM INJ 2 MG/1 ML VIAL IM PRN ×2 (14:51→16:33)
[2019-07-07] MEDS ORDERED: HALOPERIDOL LACTATE INJ 5 MG/1 ML VIAL ONE (15:22)
[2019-07-07] MEDS: NORMAL SALINE 1000 ML 1,000 ML IV PRN (16:33)
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
[2019-07-07] MEDS: HYDRALAZINE HCL INJ/PF 20 MG/1 ML SDV IV PRN (17:40)
[2019-07-07] MEDS: DIAZEPAM INJ 10 MG/2 ML DISP.SYRIN IV SCH (19:46)
[2019-07-07 20:37] LABS: ABSOLUTE BASOPHILS # (AUTO) 0.1 10^3/uL (0.0-0.2); ABSOLUTE EOSINOPHILS # (AUTO) 0.2 10^3/uL (0.0-0.6); ABSOLUTE LYMPHOCYTES (AUTO) 0.8 10^3/uL (0.5-4.7); ABSOLUTE MONOCYTES (AUTO) 1.1 10^3/uL (0.1-1.4); ABSOLUTE NEUT (AUTO) 3.9 10^3/uL (1.7-8.2); BASOPHILS % (AUTO) 1.1 % (0-2); EOSINOPHILS % (AUTO) 3.6 % (0-6); HEMATOCRIT 35.8 % (37.9-51.0); HEMOGLOBIN 11.8 g/dL (13.5-17.0); LYMPHOCYTES % (AUTO) 13.2 % (13-45); MEAN CORPUSCULAR HEMOGLOBIN 24.4 pg (27.0-33.4); MEAN CORPUSCULAR VOLUME 74 fl (80-97); MONOCYTES % (AUTO) 18.6 % (3-13); PLATELET COUNT 126 10^3/uL (150-450); RED BLOOD COUNT 4.83 10^6/uL (4.35-5.55); RED CELL DISTRIBUTION WIDTH 14.4 % (11.5-14.0); SEGMENTED NEUTROPHILS % (AUTO) 63.5 % (42-78); TOTAL CELLS COUNTED % (AUTO) 100 %; WHITE BLOOD COUNT 6.1 10^3/uL (4.0-10.5)
[2019-07-07 20:54] LABS: ALBUMIN 3.9 g/dL (3.5-5.0); ALKALINE PHOSPHATASE 87 U/L (38-126); ANION GAP 13 (5-19); ASPARTATE AMINO TRANSFERASE 100 U/L (17-59); BILIRUBIN,DIRECT 0.5 mg/dL (0.0-0.4); BILIRUBIN,TOTAL 1.1 mg/dL (0.2-1.3); BLOOD UREA NITROGEN 8 mg/dL (7-20); CALCIUM 9.8 mg/dL (8.4-10.2); CARBON DIOXIDE 24 mmol/L (22-30); CHLORIDE 101 mmol/L (98-107); GLUCOSE 92 mg/dL (75-110); PHOSPHORUS 3.2 mg/dL (2.5-4.5); POTASSIUM 3.5 mmol/L (3.6-5.0); TOTAL PROTEIN 6.8 g/dL (6.3-8.2)
[2019-07-08] MEDS: ACETAMINOPHEN 325 MG TABLET PO PRN (01:46)
[2019-07-08] MEDS: DIAZEPAM INJ 10 MG/2 ML DISP.SYRIN IV SCH ×3 (01:50→18:03)
[2019-07-08] MEDS: LORAZEPAM INJ 2 MG/1 ML VIAL IV PRN ×4 (04:22→22:00)
[2019-07-08 04:35] LABS: ALBUMIN 3.8 g/dL (3.5-5.0); ALKALINE PHOSPHATASE 78 U/L (38-126); ANION GAP 10 (5-19); ASPARTATE AMINO TRANSFERASE 94 U/L (17-59); BILIRUBIN,DIRECT 0.6 mg/dL (0.0-0.4); BILIRUBIN,TOTAL 1.2 mg/dL (0.2-1.3); BLOOD UREA NITROGEN 6 mg/dL (7-20); CALCIUM 9.6 mg/dL (8.4-10.2); CARBON DIOXIDE 28 mmol/L (22-30); CHLORIDE 101 mmol/L (98-107); GLUCOSE 97 mg/dL (75-110); TOTAL PROTEIN 6.9 g/dL (6.3-8.2)
[2019-07-08 04:42] LABS: POTASSIUM 2.9 mmol/L (3.6-5.0)
[2019-07-08] MEDS: NORMAL SALINE 1000 ML 1,000 ML IV PRN ×2 (05:37→12:50)
[2019-07-08] MEDS: POTASSIUM CHLORIDE 20 MEQ/50 ML RTU IV SCH ×4 (06:30→18:15)
[2019-07-08] MEDS: NICOTINE 21 MG/24 HR PATCH.TD24 TD SCH (09:14)
[2019-07-08] MEDS: DOCUSATE SODIUM 100 MG CAPSULE PO SCH (09:14)
[2019-07-08] MEDS: ENOXAPARIN SODIUM INJ 40 MG/0.4 ML DISP.SYRIN SUBCUT SCH (09:14)
[2019-07-08] MEDS: METOPROLOL SUCCINATE 50 MG TAB.SR.24H PO SCH ×2 (09:15→22:00)
[2019-07-08] MEDS: PANTOPRAZOLE SODIUM 40 MG VIAL IV SCH ×2 (09:15→22:00)
[2019-07-08] MEDS ORDERED: MORPHINE SULFATE 10 MG/ML INJ IV PRN (11:19)
--- NOTE | 2019-07-08 16:16 | PSYCHOLOGICAL NOTE ---
Psych Note - Psych Note Date seen by psych provider: 07/07/19 Psych Note: Reason for consult: Altered mental status Alcohol withdrawal; delirium Impression\plan: Patient is recommended for IVC. Patient is actively responding to internal stimuli reporting he is seeing his mother in the room. At that time patient and clinician are the only people in the room. Staff report the patient has been yelling at children underneath his bed thinking they are messing with plugs. Patient is not orientated currently and reports that the current president is Jose Davis. Patient will be reevaluated. Dr. Martinez was consulted and care management this patient; attending physicians in agreement with recommendations and disposition.
--- NOTE | 2019-07-08 16:18 | PSYCHOLOGICAL NOTE ---
Psych Note - Psych Note Date seen by psych provider: 07/08/19 Time seen by psych provider: 12:30 Psych Note: Reason for consult: Altered mental status Alcohol withdrawal; delirium Impression\\plan: Patient is recommended for continued IVC. Patient's presentation has slightly improved. Patient is continuing to demonstrate difficulty in orientation stating he currently feels that he is [place] the court [facility]. He identifies being at the court house "downstairs where they do rehab." Patient continues to identify the president as "the white pravin with a black mckeon;" patient notes he does not name the president as Jose Davis today. Patient is able to correctly identify the year. Patient will be reevaluated. Dr. Martinez was consulted and care management this patient; attending physicians in agreement with recommendations and disposition.
--- NOTE | 2019-07-08 16:39 | PDOC PROGRESS REPORT ---
Subjective Progress Note for:: 07/08/19 Subjective:: No adverse events overnight. He is a little more mellow today, but still disoriented. He still does not think he is in the hospital. He told someone today he thought [place]. As he is calm down his blood pressures have improved. He ate some breakfast this morning and said it was hurting his belly and so we backed him off to liquids and he tolerated that at lunch and was asking if he could have some real food. Reason For Visit: ALCOHOL WITHDRAWAL, PANCREATITIS Physical Exam Vital Signs: Temp Pulse Resp BP Pulse Ox 98.2 F 86 13 146/91 H 98 07/08/19 16:00 07/08/19 16:00 07/08/19 16:00 07/08/19 16:00 07/08/19 16:00 Intake & Output 07/07/19 07/08/19 07/09/19 06:59 06:59 06:59 Intake Total 500 1777 1292 Output Total 0 3625 1525 Balance 500 -1848 -233 Weight 99.3 kg 95.2 kg General appearance: PRESENT: no acute distress, cooperative, disheveled, other - Disoriented Respiratory exam: PRESENT: clear to auscultation genet, symmetrical, unlabored. ABSENT: accessory muscle use, chest wall tenderness, crackles, prolonged expiratory phas, rhonchi, tachypnea, wheezes Cardiovascular exam: PRESENT: RRR, +S1, +S2 Pulses: PRESENT: normal carotid pulses Vascular exam: PRESENT: normal capillary refill GI/Abdominal exam: PRESENT: normal bowel sounds, soft. ABSENT: distended, guarding, rebound, tenderness Extremities exam: ABSENT: clubbing, pedal edema Musculoskeletal exam: PRESENT: normal inspection. ABSENT: deformity Neurological exam: PRESENT: awake, oriented to person. ABSENT: oriented to place, oriented to time, oriented to situation Psychiatric exam: PRESENT: flat affect Skin exam: PRESENT: dry, warm Results Laboratory Results: 07/07/19 20:28 07/08/19 15:50 07/07/19 07/07/19 07/08/19 20:28 20:28 04:02 WBC 6.1 RBC 4.83 Hgb 11.8 L Hct 35.8 L MCV 74 L MCH 24.4 L MCHC 33.0 RDW 14.4 H Plt Count 126 L Seg Neutrophils % 63.5 Sodium 137.8 139.0 Potassium 3.5 L 2.9 L* Chloride 101 101 Carbon Dioxide 24 28 Anion Gap 13 10 BUN 8 6 L Creatinine 0.50 L 0.54 Est GFR ( Amer) > 60 > 60 Glucose 92 97 Calcium 9.8 9.6 Phosphorus 3.2 Magnesium 1.8 1.8 Total Bilirubin 1.1 1.2 AST 100 H 94 H Alkaline Phosphatase 87 78 Total Protein 6.8 6.9 Albumin 3.9 3.8 Lipase 1559.4 H 07/08/19 15:50 WBC RBC Hgb Hct MCV MCH MCHC RDW Plt Count Seg Neutrophils % Sodium Potassium 3.3 L Chloride Carbon Dioxide Anion Gap BUN Creatinine Est GFR ( Amer) Glucose Calcium Phosphorus Magnesium Total Bilirubin AST Alkaline Phosphatase Total Protein Albumin Lipase 07/03/19 05:40 Creatine Kinase 149 Impressions: Chest X-Ray 07/03/19 11:03 IMPRESSION: NO ACUTE RADIOGRAPHIC FINDING IN THE CHEST. Assessment and Plan - Diagnosis (1) Alcohol withdrawal delirium, acute, hyperactive Is this a current diagnosis for this admission?: Yes Plan: We will continue with PRN medications for withdrawal symptoms. He remains IVC'd at psychology's recommendation. As his mental status improves we will continue to reassess this situation. (2) Acute pancreatitis Qualifiers: Pancreatitis type: alcohol induced Acute pancreatitis complication: unspecified Qualified Code(s): K85.20 - Alcohol induced acute pancreatitis without necrosis or infection Is this a current diagnosis for this admission?: Yes Plan: His lipase is gone up a little bit this morning and he said whenever he ate he had a little bit of abdominal pain so he backed off to clear liquids. He tolerated that well for lunch and working to try bland diet this evening. (3) Hypertension Qualifiers: Hypertension type: essential hypertension Qualified Code(s): I10 - Essential (primary) hypertension Is this a current diagnosis for this admission?: Yes Plan: This is improving as his withdrawal symptoms improve (4) Vomiting Qualifiers: Vomiting type: unspecified Vomiting Intractability: non-intractable Nausea presence: with nausea Qualified Code(s): R11.2 - Nausea with vomiting, unspecified Is this a current diagnosis for this admission?: Yes Plan: Resolved - Time Time Spent with patient: 25-34 minutes
[2019-07-08] MEDS: NORMAL SALINE 1000 ML 1,000 ML with POTASSIUM CHLORIDE 20 MEQ, MAGNESIUM SULFATE 8 MEQ,... IV SCH ×5 (18:03)
[2019-07-09] MEDS: POTASSIUM CHLORIDE 20 MEQ/50 ML RTU IV SCH (00:04)
[2019-07-09] MEDS: DIAZEPAM INJ 10 MG/2 ML DISP.SYRIN IV SCH ×3 (02:11→17:32)
[2019-07-09 04:14] LABS: ANION GAP 7 (5-19); BLOOD UREA NITROGEN 4 mg/dL (7-20); CALCIUM 9.4 mg/dL (8.4-10.2); CARBON DIOXIDE 26 mmol/L (22-30); CHLORIDE 105 mmol/L (98-107); GLUCOSE 95 mg/dL (75-110); POTASSIUM 3.7 mmol/L (3.6-5.0)
[2019-07-09] MEDS: ENOXAPARIN SODIUM INJ 40 MG/0.4 ML DISP.SYRIN SUBCUT SCH (11:11)
[2019-07-09] MEDS: DOCUSATE SODIUM 100 MG CAPSULE PO SCH (11:11)
[2019-07-09] MEDS: METOPROLOL SUCCINATE 50 MG TAB.SR.24H PO SCH ×2 (11:14→21:43)
[2019-07-09] MEDS: NICOTINE 21 MG/24 HR PATCH.TD24 TD SCH (11:18)
[2019-07-09] MEDS: PANTOPRAZOLE SODIUM 40 MG VIAL IV SCH ×2 (11:18→21:52)
--- NOTE | 2019-07-09 14:58 | PDOC PROGRESS REPORT ---
Subjective Progress Note for:: 07/09/19 Subjective:: No adverse events overnight. They were able to transition him over to soft restraints and he is done pretty well so far. He still a bit confused but is not as agitated. He is been eating without any evidence of abdominal pain. Reason For Visit: ALCOHOL WITHDRAWAL, PANCREATITIS Physical Exam Vital Signs: Temp Pulse Resp BP Pulse Ox 97.7 F 100 18 123/72 99 07/09/19 14:00 07/09/19 14:00 07/09/19 14:00 07/09/19 14:00 07/09/19 14:00 Intake & Output 07/08/19 07/09/19 07/10/19 06:59 06:59 06:59 Intake Total 1777 2385 240 Output Total 3625 3625 0 Balance -1848 -1240 240 Weight 95.2 kg 94.5 kg General appearance: PRESENT: no acute distress, cooperative, disheveled, other - Disoriented Respiratory exam: PRESENT: clear to auscultation genet, symmetrical, unlabored. ABSENT: accessory muscle use, chest wall tenderness, crackles, prolonged expiratory phas, rhonchi, tachypnea, wheezes Cardiovascular exam: PRESENT: RRR, +S1, +S2 Pulses: PRESENT: normal carotid pulses Vascular exam: PRESENT: normal capillary refill GI/Abdominal exam: PRESENT: normal bowel sounds, soft. ABSENT: distended, guarding, rebound, tenderness Extremities exam: ABSENT: clubbing, pedal edema Musculoskeletal exam: PRESENT: normal inspection. ABSENT: deformity Neurological exam: PRESENT: awake, oriented to person. ABSENT: oriented to place, oriented to time, oriented to situation Psychiatric exam: PRESENT: flat affect Skin exam: PRESENT: dry, warm Results Laboratory Results: 07/07/19 20:28 07/09/19 03:31 07/08/19 07/08/19 07/09/19 15:50 15:50 03:31 Sodium 138.1 Potassium 3.3 L 3.7 Chloride 105 Carbon Dioxide 26 Anion Gap 7 BUN 4 L Creatinine 0.50 L Est GFR ( Amer) > 60 Glucose 95 Calcium 9.4 Magnesium 1.7 1.9 Amylase Lipase 07/09/19 03:31 Sodium Potassium Chloride Carbon Dioxide Anion Gap BUN Creatinine Est GFR ( Amer) Glucose Calcium Magnesium Amylase 190 H Lipase 1513.9 H 07/03/19 05:40 Creatine Kinase 149 Impressions: Chest X-Ray 07/03/19 11:03 IMPRESSION: NO ACUTE RADIOGRAPHIC FINDING IN THE CHEST. Assessment and Plan - Diagnosis (1) Alcohol withdrawal delirium, acute, hyperactive Is this a current diagnosis for this admission?: Yes Plan: Seems to be making some improvement today. Out of the violent restraints and into soft limb restraints. He is more cooperative today. Were going to stop the scheduled Valium and just give him as needed doses of Ativan should he display signs of withdrawal symptoms. (2) Acute pancreatitis Qualifiers: Pancreatitis type: alcohol induced Acute pancreatitis complication: unspecified Qualified Code(s): K85.20 - Alcohol induced acute pancreatitis without necrosis or infection Is this a current diagnosis for this admission?: Yes Plan: Seems to be resolved. He is eating without evidence of abdominal pain. (3) Hypertension Qualifiers: Hypertension type: essential hypertension Qualified Code(s): I10 - Essential (primary) hypertension Is this a current diagnosis for this admission?: Yes Plan: His blood pressure has improved substantially since his withdrawal has improved. He was on some Lopressor work on a hold that today to see what effect it has on his heart rate and blood pressure. (4) Vomiting Qualifiers: Vomiting type: unspecified Vomiting Intractability: non-intractable Nausea presence: with nausea Qualified Code(s): R11.2 - Nausea with vomiting, unspecified Is this a current diagnosis for this admission?: Yes Plan: Resolved - Time Time Spent with patient: 15-24 minutes
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
[2019-07-09] MEDS: NORMAL SALINE 1000 ML 1,000 ML with POTASSIUM CHLORIDE 20 MEQ, MAGNESIUM SULFATE 8 MEQ,... IV SCH ×5 (18:29)
[2019-07-10] MEDS: DIAZEPAM INJ 10 MG/2 ML DISP.SYRIN IV SCH (01:14)
[2019-07-10 04:58] LABS: ANION GAP 6 (5-19); BLOOD UREA NITROGEN 8 mg/dL (7-20); CALCIUM 9.2 mg/dL (8.4-10.2); CARBON DIOXIDE 28 mmol/L (22-30); CHLORIDE 104 mmol/L (98-107); GLUCOSE 113 mg/dL (75-110); POTASSIUM 3.8 mmol/L (3.6-5.0)
[2019-07-10] MEDS: ENOXAPARIN SODIUM INJ 40 MG/0.4 ML DISP.SYRIN SUBCUT SCH (09:29)
[2019-07-10] MEDS: DOCUSATE SODIUM 100 MG CAPSULE PO SCH (09:29)
[2019-07-10] MEDS: METOPROLOL SUCCINATE 50 MG TAB.SR.24H PO SCH (10:13)
[2019-07-10] MEDS: NICOTINE 21 MG/24 HR PATCH.TD24 TD SCH (10:14)
[2019-07-10] MEDS: PANTOPRAZOLE SODIUM 40 MG VIAL IV SCH (10:14)
[2019-07-10 11:16] VITALS: BP 129/83
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
== END 2019-07-10 11:56 | disposition home or self-care (01) | DRG 896 ==
LOC: ER 05:27 → EH 08:04 → 4N 14:51 → ICU 07-07 16:00 → 4N 07-09 20:00
PROVIDERS: ADMIT Internal Medicine; ATTEND Internal Medicine
DX: F10.231 Alcohol dependence with withdrawal delirium (principal); K85.20 Alcohol induced acute pancreatitis without necrosis or infection; K86.0 Alcohol-induced chronic pancreatitis; I10 Essential (primary) hypertension; F17.210 Nicotine dependence, cigarettes, uncomplicated; Y90.0 Blood alcohol level of less than 20 mg/100 ml; Z78.1 Physical restraint status
CPT/HCPCS: 36415; 71045; 80048; 80053; 80307; 81001; 82140; 82150; 82550; 83036; 83690; 83735; 84100; 84132; 85025; 85610; 85730; 99284; J0360; J1170; J1200; J1630; J2060; J2270; J2405; J2550; J3360; J3411; J3475; J3480; J3490; J7030; S0164